=== PATIENT | male | born 1970 | race Caucasian/White ===

== ENCOUNTER 2016-07-02 10:29 | Inpatient (IN) | payer OTHER ==
[~2016-07-02] VITALS: Ht 172.7 cm; Wt 81.6 kg
--- NOTE | 2016-07-02 10:49 | NUR ---
TRIAGE: 45 Y/O MALE PRESENTS C/O "I'M ABOUT TO GO THROUGH MASSIVE DETOX FROM ALCOHOL." "I'M ALREADY SHAKING." LAST DRINK 2 HOURS AGO: 1/2 PINT VODKA. DENIES ILLICIT DRUG USE. HISTORY OF SEIZURES S/P ETOH DETOX.
--- NOTE | 2016-07-02 10:49 | NUR ---
DENIES SUICIDALITY OR HOMICIDALITY. ARRIVES WITH A FRIEND TO TRIAGE.
--- NOTE | 2016-07-02 11:22 | NUR ---
AMBULATORY TO ROOM 19 WITH FRIEND. SECURITY AT BEDSIDE FOR WANDING.
--- NOTE | 2016-07-02 11:38 | NUR ---
WANDED BY SECURITY AND CHANGED INTO BLUE SCRUBS. 1 BELONGINGS BAG IN CLOSET, SIG OTHER TOOK ALL OTHER BELONGINGS. URINE TRIO SENT, BLOOD (SST/LAV/BLUE/WIN) SENT. PT SMELLS OF ETOH AND IS AWARE THAT HE CANNOT BE EVALUATED FOR DETOX UNTIL SOBER. PT NOW STATING HE INTIALLY DID NOT WANT TO SAY THIS IN FRONT OF HIS PARTNER BUT IS SI WITH PLAN NOW. CHARGE NURSE INFORMED. PARTNER REMAINS AT BEDSIDE FOR SUPPORT.
[2016-07-02 11:43] LABS: ABSOLUTE BASOPHIL COUNT 0 /CUMM (0.0-0.2); ABSOLUTE EOSINOPHIL COUNT 0.3 /CUMM (0.0-0.7); ABSOLUTE GRANULOCYTE CT 4.1 /CUMM (1.4-6.5); ABSOLUTE LYMPH COUNT 1.2 /CUMM (1.2-3.4); ABSOLUTE MONOCYTE COUNT 0.3 /CUMM (0.10-0.60); BASOPHIL % 0.3 % (0.0-2.0); EOSINOPHIL % 5.3 % (0-5); GRANULOCYTE % 69.5 % (42.2-75.2); HEMATOCRIT 43.3 % (42-52); MEAN CORPUSCULAR HGB 28.8 PG (27.0-31.0); MEAN CORPUSCULAR HGB CONC 33.4 G/DL (33.0-37.0); MEAN CORPUSCULAR VOLUME 86.4 FL (80.0-94.0); MEAN PLATELET VOLUME 7.1 FL (7.4-10.4); PLATELET COUNT 242 /CUMM (130-400); RBC DISTRIBUTION WIDTH 14.5 % (11.5-14.5); RED BLOOD CELL CT 5.01 /CUMM (4.70-6.10); WHITE BLOOD CELL COUNT 5.9 /CUMM (4.8-10.8)
[2016-07-02] MEDS ORDERED: PANTOPRAZOLE SO40 M1 PO (11:50)
--- NOTE | 2016-07-02 11:51 | NUR ---
PT NOW ALSO REPORTS HE WAS DX WITH A BLEEDING STOMACH ULCER AFTER VOMITING BLOOD AROUND THE TIME OF HIS HERNIA SURGERY. WAS PRESCRIBED PROTONIX BUT HAS NOT TAKEN. NO VOMITING HERE. C/O PAIN AT INCISION SITE, NO INCREASE FROM PRIOR, PARTNER REPORTS "HIS PAIN IS PROFOUND" BUT THEN STATES "THEY GAVE HIM OPIATES FOR THE SURGERY AND THAT JUST MADE HIM DRINK."
[2016-07-02 11:56] VITALS: BP 132/73
--- NOTE | 2016-07-02 12:18 | NUR ---
PT ASLEEP/SNORING ON STRETCHER
--- NOTE | 2016-07-02 12:42 | NUR ---
JOHAN KEANE AT BEDSIDE FOR EVAL
[2016-07-02 12:57] VITALS: BP 142/58
--- NOTE | 2016-07-02 13:16 | NUR ---
CRITICAL TEST RESULTS [id number] NIKI LUGO 45 M TESTS AND RESULTS: LACTIC 2 Results received and read back by: RADHA LEWIS Results received date and time: 07/02/16 1316 The following provider was notified of the results, and read the results back: JOHAN KEANE Notified date and time: 07/02/16 at 1315
[2016-07-02 13:17] LABS: PT 10.6 SEC (9.4-12.5); PTT 30 SEC (25-37)
--- NOTE | 2016-07-02 13:47 | ED PSYCHIATRIC COMPLAINT ---
History of Present Illness General Chief Complaint: ETOH/Drug Related Complaint Stated Complaint: WITHDRAWL Source: patient Exam Limitations: no limitations Vital Signs & Intake/Output Vital Signs & Intake/Output Vital Signs Date Time Temp Pulse Resp B/P B/P Pulse O2 O2 Flow FiO2 Mean Ox Delivery Rate 07/04 0824 98.4 71 20 150/100 99 Room Air / 0800 98.4 71 20 150/100 05/08 0630 98.6 60 20 164/100 97 Room Air / 0204 98.5 58 20 150/94 95 Room Air 05/ 2259 98.7 88 20 130/80 96 05/07 2000 98.7 64 16 142/76 05/07 1901 98.2 63 20 140/68 95 Room Air / 1600 99.1 68 17 144/70 05/07 1546 98.2 67 18 96 05/ 1457 68 16 144/82 98 Room Air / 1200 97.9 88 16 140/78 ED Intake and Output 07/04 0000 07/03 1200 Intake Total 2375 1100 Output Total 200 Balance 2175 1100 Intake, IV 375 1000 Intake, Oral 2000 100 Number 1 Bowel Movements Output, 200 Emesis Reconcile Medications Pantoprazole Sodium 40 MG TABLET.DR 1 TAB PO DAILY ULCER (Reported) Triage Note: TRIAGE: 45 Y/O MALE PRESENTS C/O "I'M ABOUT TO GO THROUGH MASSIVE DETOX FROM ALCOHOL." "I'M ALREADY SHAKING." LAST DRINK 2 HOURS AGO: 1/ PINT VODKA. DENIES ILLICIT DRUG USE. HISTORY OF SEIZURES S/P ETOH DETOX. Triage Nurses Notes Reviewed? yes HPI: This patient is a 45-year-old male with past medical history including alcohol dependence who is 9 days status post umbilical repair mesh revision who presented to the emergency department today for evaluation of alcohol intoxication. The patient's significant other is at the bedside. He reported that this patient was 2 years sober. His last alcohol withdrawal seizure was in August 2013. The patient recently had a hernia repair. The opiates that were given to him triggered his relapse. The patient's last drink was this morning at approximately 4:00 when he had vodka. The patient does not remember exactly how much he had to drink. He denies any illicit drug use. The patient is also endorsing some soreness around the incision site. The patient's significant other reported that the patient has been having bloody diarrhea as well as vomiting blood over the last several days. He just picked up a new medication for this, but has not started it yet. They were told that he likely has a gastric ulcer. The patient denied any fevers, chills, chest pain, difficulty breathing, back pain, nausea, or vomiting. (MANUEL KEANE PA-C) Allergies Coded Allergies: lithium (Intermediate, RASH 07/02/16) (JUMA DORSEY,HEATHER) Past History Travel History Traveled to [place] past 21 day No Medical History Any Pertinent Medical History? see below for history Neurological: seizure Gastrointestinal: umbilical hernia Psychiatric: alcohol dependence, depression Surgical History Surgical History: non-contributory Psychosocial History Who do you live with Patient/Self What is your primary language Uzbek Tobacco Use: Current Daily Use Daily Tobacco Use Amount/Type: => 5 Cigarettes daily ETOH Use: alcoholic Illicit Drug Use: denies illicit drug use Family History Hx Contributory? No (MANUEL KEANE PA-C) Review of Systems Review of Systems Constitutional: Reports: no symptoms. EENTM: Reports: no symptoms. Respiratory: Reports: no symptoms. Cardiovascular: Reports: no symptoms. GI: Reports: see HPI. Genitourinary: Reports: no symptoms. Musculoskeletal: Reports: no symptoms. Skin: Reports: no symptoms. Neurological/Psychological: Reports: see HPI. All Other Systems: Reviewed and Negative (MANUEL KEANE PA-C) Physical Exam Physical Exam General Appearance: well developed/nourished, alert, awake, intoxicated Neurological/Psychiatric: no motor/sensory deficits, awake, alert, calm, motorized squad sergeant II- XII nml as tested, oriented x 3 Comments: Well-developed well-nourished person in who is currently intoxicated HEENT: Normal EENT exam, head normocephalic, moist mucous membranes PERRLA bilaterally. EOMI bilaterally Neck: Supple, no lymphadenopathy Back: Normal inspection Cardiovascular: Regular rate and rhythm with no murmurs, rubs, or gallops Respiratory: Chest nontender. No respiratory distress. Breath sounds clear to auscultation bilaterally with no wheezes, rales, or rhonchi Abdomen: Soft and nondistended. Tympanic to percussion. Well healing approximately 3 cm in length previous incision site just above the umbilicus. Abdominal binder in place. Mild tenderness to palpation over the healing wound site. No rebound or guarding. Extremity: Nnormal and equal pulses. Neuro: Alert oriented x3, cranial nerves II through XII grossly intact. Skin: No appreciable rash on exposed skin, skin is warm and dry. Psych: Mood and affect is normal SAD PERSONS Done? yes (LAKHWINDER SAN,MANUEL) Progress Differential Diagnosis: dementia, drug intoxication, drug overdose, drug withdrawal, electrolyte abnormality, encephalitis, hypoglycemia, hypothyroidism, IC hem/mass/tumor, alcohol intoxication, alcohol withdrawal, gastric ulcer, gastroenteritis, perforated viscus Plan of Care: Orders Procedure Date/time Status Change service to 07/04 757 Active CBC WITHOUT DIFFERENTIAL 07/04 599 Complete PHARMACY COMMUNICATION FORM 07/04 UNK Active CP South Sitter/Safety Monitor 07/03 UNK Complete Continuous Observation Monitor 07/03 UNK Active Current Medications Sig/Farzaneh Start time Last Medication Dose Stop Time Status Admin Chlordiazepoxide HCl 50 MG Q8 07/04 06 AC 07/04 (Librium) 0648 Folic Acid 1 MG DAILY 07/03 999 AC 07/04 (Folic Acid) 0851 Multivitamins 1 TAB DAILY 07/03 999 AC 07/04 (Theragran Vitamins) 0851 Nicotine 14 MG DAILY 07/03 1000 AC 07/04 (Nicotine Cq) 0851 Pantoprazole Sodium 40 MG BID 07/03 999 AC 07/04 (Protonix) 0851 Thiamine HCl 100 MG DAILY 07/03 1000 AC 07/04 (Vitamin B1) 0851 Acetaminophen 1,000 MG Q6P PRN 07/02 2099 AC 07/03 (Ofirmev) 1625 N/A 1 UNIT (No Carrier) Acetaminophen 325 MG Q6P PRN 07/02 2099 AC (Tylenol) Ondansetron HCl 4 MG Q6P PRN 07/02 2099 AC 07/03 (Zofran) 1231 Lorazepam 0 Q1P PRN 07/02 2029 AC 07/03 (Ativan) 1231 Morphine Sulfate 2 MG Q8P PRN 07/02 2029 AC 07/03 (Morphine) 0724 Laboratory Tests 07/04/16 0735: CBC w Diff NO MAN DIFF REQ, RBC 4.72, MCV 86.7, MCH 28.9, RDW 14.4, MPV 7.9, Gran % 70.9, Lymphocytes % 13.9 L, Monocytes % 7.6, Eosinophils % 7.2 H, Basophils % 0.4, Absolute Granulocytes 4.4, Absolute Lymphocytes 0.9 L, Absolute Monocytes 0.5, Absolute Eosinophils 0.5, Absolute Basophils 0, PUBS MCHC 33.3 Diagnostic Imaging: Viewed by Me: CT Scan. Discussed w/RAD: CT Scan. Radiology Impression: PATIENT: NIKI LUGO PRESENT AGE: 45 PATIENT ACCOUNT NO: [id number] : 68 LOCATION: [facility] ORDERING PHYSICIAN: MANUEL KEANE PA-C SERVICE DATE: 07/02/16 EXAM TYPE: CAT - CT ABD & PELVIS W IV CONTRAST EXAMINATION: CT ABDOMEN AND PELVIS WITH CONTRAST CLINICAL INFORMATION: Bloody vomitus and bloody diarrhea. Evaluate for perforated viscus. COMPARISON: None. TECHNIQUE: Multidetector CT volumetric acquisition of the abdomen and pelvis was performed after the administration of 94 and MLO of intravenous Optiray 320 The data set was reformatted in the sagittal and coronal planes and reviewed on an independent workstation. DLP: 357.58 mGy-cm. FINDINGS: LOWER CHEST: Mild subsegmental atelectasis seen in the lung bases bilaterally. Trace physiologic pericardial fluid is seen. LIVER, GALLBLADDER, BILIARY TREE: Liver normal size and diffusely lower in attenuation compared to the spleen, consistent with hepatic steatosis. No focal cystic or solid mass or intra-or extrahepatic ductal dilatation. Hepatic and portal veins patent. Gallbladder partially distended and within normal limits. PANCREAS: Normal. No ductal dilatation, mass, or surrounding stranding. SPLEEN: Normal size and appearance. Splenic vein patent. ADRENAL GLANDS AND KIDNEYS: Adrenal glands normal. Kidneys bilaterally symmetric in size and function. There is a nonobstructing 0.5 cm mid right renal densely calcified calculus with mean attenuation values of 675 Hounsfield units, consistent with a calcified stone, such as a calcium phosphate stone. No other renal calculi are seen. No focal mass, hydronephrosis, or perinephric stranding. URETERS AND BLADDER: Ureters decompressed and within normal limits. Bladder partially distended and within normal limits. PELVIC ORGANS: Unremarkable. GASTROINTESTINAL TRACT: Partial fluid and air distention of the stomach and duodenal bulb is seen without focal mass seen. There is very subtle perigastric hyperemia seen around the gastric fundus and body with tiny subcentimeter sized lymph nodes seen in the lesser sac. There is questionable associated mild thickening of the gastric wall. These findings are nonspecific. No significant perigastric or periesophageal varices are noted. A few scattered colonic diverticula are seen with no evidence of acute diverticulitis. Small and large bowel loops decompressed and otherwise unremarkable. No evidence of bowel obstruction or perforation. No abnormal bowel wall thickening seen. Appendix in right lower quadrant normal. ABDOMINAL WALL: There is some amorphous density present in the subcutaneous fat of the mid anterior abdominal wall in the periumbilical region, extending from the skin surface down to the underlying abdominal wall musculature. Mild associated thickening of the skin is seen and findings may represent focal area of acute cellulitis and panniculitis. Other differential could include posttraumatic or postsurgical changes. LYMPHOVASCULAR STRUCTURES: Abdominal aorta normal in caliber. No periaortic collections. Mild atherosclerotic calcifications of the distal abdominal aorta and bifurcation are noted. Incidental note is made of a circumaortic left renal vein and 2 left renal arteries. No abdominal or pelvic adenopathy or free fluid collection. BONES: There is mild vertebral spurring seen in the lower thoracic spine and in the lower lumbar spine. No suspicious bone findings are seen. IMPRESSION: 1. Very subtle findings are seen with suggestion of gastric wall thickening involving the fundus and body with minimal surrounding hyperemia and adenitis. Findings are best appreciated on the thin section images and in the clinical setting provided, raise the question of subtle gastritis. Endoscopic correlation is requested. 2. No evidence of bowel obstruction or perforation is seen. 3. Scattered colonic diverticulosis with no evidence of acute diverticulitis. 4. Abnormal infiltration of the skin and the underlying fat in the periumbilical region. This may be related to acute cellulitis/panniculitis versus posttraumatic or postsurgical change. Close clinical correlation is requested. 5. Nonobstructing mid right renal calcification. DICTATED BY: CAMPOS GRAMAJO MD DATE/TIME DICTATED:07/02/161706 FASHION PHOTOGRAPHER:KENDRA DATE/TIME TRANSCRIBED:07/02/161706 CONFIDENTIAL, DO NOT COPY WITHOUT APPROPRIATE AUTHORIZATION. <Electronically signed in Other Vendor System> SIGNED BY: CAMPOS GRAMAJO MD 07/02/16 1738 Comments: 07/02/2016 3:22:39 PM: The patient's significant other left the room. I discussed with this patient the possibility of any suicidal ideation. He reported that he has been feeling suicidal. He reported that he would do something, "quick and easy. A fast way out like in the car." The patient denied any homicidal ideation. (MANUEL KEANE PA-C) Departure Departure Disposition: STILL A PATIENT Condition: Stable Clinical Impression Primary Impression: GI bleed Qualifiers: GI bleed type/associated pathology: unspecified gastrointestinal hemorrhage type Qualified Code: K92.2 - Gastrointestinal hemorrhage, unspecified Secondary Impressions: Alcohol withdrawal seizure Qualifiers: Complication of substance-induced condition: with unspecified complication Qualified Codes: F10.239 - Alcohol dependence with withdrawal, unspecified; R56.9 - Unspecified convulsions Referrals: NEIL MURDOCK MD (PCP/Family) Departure Forms: Customer Survey General Discharge Information Admission Note Spoke With: BRITNEY TREVIÑO MD Documentation of Exam: Documentation of any treatments & extenuating circumstances including Concerns Regarding Discharge (functional status, medication knowledge or non-compliance, living conditions, etc.) that warrant an admission rather than observation: This patient is a 45-year-old male who presented to the emergency department today for, evaluation of alcohol detox and GI bleed. This patient likely to be admitted for CIWA protocol, close monitoring, GI consultation, possible endoscopy, PPI, and crisis consultation. This patient is a poor candidate for outpatient treatment. Premature discharge could prove medically harmful. (MANUEL KEANE PA-C) ([facility]) 1026 N/A 1 UNIT (No Carrier) Acetaminophen 325 MG Q6P PRN / 2100 AC (Tylenol) Ondansetron HCl 4 MG Q6P PRN 07/02 2100 AC 07/03 (Zofran) 1231 Lorazepam 0 Q1P PRN 07/02 2030 AC 07/03 (Ativan) 1231 Morphine Sulfate 2 MG Q8P PRN 07/02 2030 AC 07/03 (Morphine) 0724 Laboratory Tests 07/03/16 0622: Phosphorus 3.4, Magnesium 1.7, Total Bilirubin 0.7, Direct Bilirubin 0.2, AST 49 , ALT 62, Alkaline Phosphatase 64, Total Protein 5.2 L, Albumin 3.2 L, CBC w Diff NO MAN DIFF REQ, RBC 4.51 L, MCV 86.4, MCH 29.0, RDW 14.1, MPV 7.8, Gran % 74.1, Lymphocytes % 13.8 L, Monocytes % 6.8, Eosinophils % 5.0, Basophils % 0.3 , Absolute Granulocytes 5.1, Absolute Lymphocytes 0.9 L, Absolute Monocytes 0.5 , Absolute Eosinophils 0.3, Absolute Basophils 0, PUBS MCHC 33.6 Departure Departure Disposition: STILL A PATIENT Condition: Stable Clinical Impression Primary Impression: GI bleed Qualifiers: GI bleed type/associated pathology: unspecified gastrointestinal hemorrhage type Qualified Code: K92.2 - Gastrointestinal hemorrhage, unspecified Secondary Impressions: Alcohol withdrawal seizure Qualifiers: Complication of substance-induced condition: with unspecified complication Qualified Codes: F10.239 - Alcohol dependence with withdrawal, unspecified; R56.9 - Unspecified convulsions Referrals: NEIL MURDOCK MD (PCP/Family) Departure Forms: Customer Survey General Discharge Information Admission Note Spoke With: BRITNEY TREVIÑO MD Documentation of Exam: Documentation of any treatments & extenuating circumstances including Concerns Regarding Discharge (functional status, medication knowledge or non-compliance, living conditions, etc.) that warrant an admission rather than observation: This patient is a 45-year-old male who presented to the emergency department today for, evaluation of alcohol detox and GI bleed. This patient likely to be admitted for CIWA protocol, close monitoring, GI consultation, possible endoscopy, PPI, and crisis consultation. This patient is a poor candidate for outpatient treatment. Premature discharge could prove medically harmful. (LAKHWINDER SAN,MANUEL)
--- NOTE | 2016-07-02 14:17 | NUR ---
IV EST FOR CT SCAN. PT CONTS SLEEPING ON/OFF, REPORTS "FEELING LIKE I'M GETTING WORSE" BUT NO VISIBLE SYMPTOMS OF DETOX.
[2016-07-02 15:11] VITALS: BP 119/70
--- NOTE | 2016-07-02 15:16 | NUR ---
PT AMBULATORY TO BATHROOM WITH SITTER WITHOUT DIFFICULTY. PT REPORTING STILL HAVING NAUSEA, BUT ALSO ASKING FOR FOOD. STILL C/O FEELING DETOX SYMPTOMS THOUGH CONTS TO SLEEP FREQUENTLY WITH ODOR OF ETOH. NO VISIBLE TREMORS/SWEATING ETC. SITTER AT BEDSIDE. AWAITING CT SCAN.
--- NOTE | 2016-07-02 16:34 | NUR ---
CARE ASSUMED BY THIS RN NOW.
--- NOTE | 2016-07-02 16:40 | NUR ---
PT TO CAT SCAN
--- NOTE | 2016-07-02 17:02 | NUR ---
PT RETURNED FROM CAT SCAN
--- NOTE | 2016-07-02 17:38 | CT SCAN REPORT ---
EXAMINATION: CT ABDOMEN AND PELVIS WITH CONTRAST CLINICAL INFORMATION: Bloody vomitus and bloody diarrhea. Evaluate for perforated viscus. COMPARISON: None. TECHNIQUE: Multidetector CT volumetric acquisition of the abdomen and pelvis was performed after the administration of 94 and MLO of intravenous Optiray 320 The data set was reformatted in the sagittal and coronal planes and reviewed on an independent workstation. DLP: 357.58 mGy-cm. FINDINGS: LOWER CHEST: Mild subsegmental atelectasis seen in the lung bases bilaterally. Trace physiologic pericardial fluid is seen. LIVER, GALLBLADDER, BILIARY TREE: Liver normal size and diffusely lower in attenuation compared to the spleen, consistent with hepatic steatosis. No focal cystic or solid mass or intra-or extrahepatic ductal dilatation. Hepatic and portal veins patent. Gallbladder partially distended and within normal limits. PANCREAS: Normal. No ductal dilatation, mass, or surrounding stranding. SPLEEN: Normal size and appearance. Splenic vein patent. ADRENAL GLANDS AND KIDNEYS: Adrenal glands normal. Kidneys bilaterally symmetric in size and function. There is a nonobstructing 0.5 cm mid right renal densely calcified calculus with mean attenuation values of 675 Hounsfield units, consistent with a calcified stone, such as a calcium phosphate stone. No other renal calculi are seen. No focal mass, hydronephrosis, or perinephric stranding. URETERS AND BLADDER: Ureters decompressed and within normal limits. Bladder partially distended and within normal limits. PELVIC ORGANS: Unremarkable. GASTROINTESTINAL TRACT: Partial fluid and air distention of the stomach and duodenal bulb is seen without focal mass seen. There is very subtle perigastric hyperemia seen around the gastric fundus and body with tiny subcentimeter sized lymph nodes seen in the lesser sac. There is questionable associated mild thickening of the gastric wall. These findings are nonspecific. No significant perigastric or periesophageal varices are noted. A few scattered colonic diverticula are seen with no evidence of acute diverticulitis. Small and large bowel loops decompressed and otherwise unremarkable. No evidence of bowel obstruction or perforation. No abnormal bowel wall thickening seen. Appendix in right lower quadrant normal. ABDOMINAL WALL: There is some amorphous density present in the subcutaneous fat of the mid anterior abdominal wall in the periumbilical region, extending from the skin surface down to the underlying abdominal wall musculature. Mild associated thickening of the skin is seen and findings may represent focal area of acute cellulitis and panniculitis. Other differential could include posttraumatic or postsurgical changes. LYMPHOVASCULAR STRUCTURES: Abdominal aorta normal in caliber. No periaortic collections. Mild atherosclerotic calcifications of the distal abdominal aorta and bifurcation are noted. Incidental note is made of a circumaortic left renal vein and 2 left renal arteries. No abdominal or pelvic adenopathy or free fluid collection. BONES: There is mild vertebral spurring seen in the lower thoracic spine and in the lower lumbar spine. No suspicious bone findings are seen. IMPRESSION: 1. Very subtle findings are seen with suggestion of gastric wall thickening involving the fundus and body with minimal surrounding hyperemia and adenitis. Findings are best appreciated on the thin section images and in the clinical setting provided, raise the question of subtle gastritis. Endoscopic correlation is requested. 2. No evidence of bowel obstruction or perforation is seen. 3. Scattered colonic diverticulosis with no evidence of acute diverticulitis. 4. Abnormal infiltration of the skin and the underlying fat in the periumbilical region. This may be related to acute cellulitis/panniculitis versus posttraumatic or postsurgical change. Close clinical correlation is requested. 5. Nonobstructing mid right renal calcification.
--- NOTE | 2016-07-02 18:14 | NUR ---
CALLED DIETARY TO ORDER DINNER TRAY
[2016-07-02 19:10] VITALS: BP 119/63
--- NOTE | 2016-07-02 20:17 | History & Physical ---
SUSHILA ANTOINE 07/02/16 2015: General Information and HPI MD Statement: I have seen and personally examined NIKI LUGO and documented this H&P. The patient is a 45 year old M who presented with a patient stated chief complaint of [ALCOHOL DETOX]. Source of Information: patient Exam Limitations: no limitations History of Present Illness: 45-year-old male with a past medical history of alcohol dependence, major depressive disorder, SI, PTSDalcohol withdrawal seizure in August 2013 status post 9 days of umbilical repair mesh revision presented to the ED for evaluation of alcohol intoxication. According to the patient he underwent umbilical hernia revision surgery on 06/21 at [facility] by Dr. Beebe. He was discharged from the hospital and continued to have abdominal pain at the site of surgery. He states that he ran out of pain medications that he was discharged on on day 3 and started to take ibuprofen 800 mg 3 times a day after which she started to experience bloody vomitus as well as blood in his stools. He states that he return back to the hospital was seen in the ER and advised to stop taking ibuprofen after which his symptoms bloody vomitus and bowel movements resolved. He however continued to experience pain at the site of surgery and so about 3-4 days ago he started drinking to help self medicate himself. He states that he drinks 2-1/2 pins and 6 packs, stating that he would have to get up in the morning and have a half to have alcohol first thing in order to avoid its withdrawal effects. He would occasionally wake up during the middle of the needed 2 or 3 AM with shakes and chills. He denies any chest pain, does however endorse dizziness, palpitations, headache however denies blurry vision, seizures , loss of consciousness. He states that his last drink was half a pint of Vodka , this morning at 6 AM. Of note his friend saw him this morning and brought him to the ER. Of note patient has a history of alcohol abuse and was sober for almost 2 years up until 3-4 days ago. He was also a former smoker and quit smoking 9 months ago, had smoked 1 pack per day for 20 years before restarting it 3-4 days ago. Patient currently denies any black tarry stools, does endorse nausea but denies any hematemesis. He denies any fever, shortness of breath, cough, slurred speech, seizure like activity. He does however states that he wished that he was because he does not want to go through it and also Detrol all over again. His last alcohol detox 2 years ago at which time he did underwent seizures. Allergies/Medications Allergies: Coded Allergies: lithium (Intermediate, RASH 07/02/16) Home Med list Pantoprazole Sodium 40 MG TABLET. 1 TAB PO DAILY ULCER (Reported) Past History Travel History Traveled to [place] past 21 day No ( ) Medical History Neurological: seizure Gastrointestinal: umbilical hernia Psychiatric: alcohol dependence, depression Isolation History: Standard Surgical History Surgical History: hernia repair-umbilical Past Family/Social History Family History Relations & Conditions if any Relation not specified for: *No pertinent family history Psychosocial History Where do you live? Home Who Do You Live With? self Smoking Status: Current Everyday Smoker ETOH Use: alcoholic Illicit Drug Use: SMOKE MARIJUANIA Functional Ability ADLs Independent: dressing, eating, toileting, bathing. Ambulation: independent IADLs Independent: shopping, housework, finances, food prep, telephone, transportation , medication admin. Employment History Employment Employed Profession/Employer [employer] Review of Systems Review of Systems Constitutional: Reports: chills, diaphoresis. Denies: fever, weakness. EENTM: Denies: visual changes. Cardiovascular: Reports: palpitations. Denies: chest pain, orthopena, peripheral edema, syncope. Respiratory: Denies: cough, orthopnea, short of breath, sputum production, wheezing. GI: Reports: abdominal pain, nausea, bloody stool, vomiting. Denies: constipation, diarrhea. Genitourinary: Denies: dysuria, frequency, hematuria. Musculoskeletal: Denies: back pain, joint pain, joint swelling. Neurological/Psychological: Reports: headache, tremors. Denies: numbness, paresthesia, tingling, weakness. Exam & Diagnostic Data Last 24 Hrs of Vital Signs/I&O Vital Signs Date Time Temp Pulse Resp B/P B/P Pulse O2 O2 Flow FiO2 Mean Ox Delivery Rate 07/02 1910 98.6 84 15 119/63 07/02 1909 98.6 85 15 119/63 93 Room Air Room Air 07/02 1743 97.7 79 20 114/66 92 Room Air 07/02 1511 97.4 89 18 119/70 05/06 1449 97.4 89 18 119/70 91 Room Air 05/06 1257 97.5 71 20 142/58 05/06 1256 97.5 71 20 142/58 93 Room Air / 1156 99.0 91 18 132/73 05/06 1045 99.0 91 18 132/73 95 Room Air Room Air Intake & Output 07/02 1600 05/06 0800 05/ 0000 Intake Total Output Total Balance Patient 180 lb Weight Weight Reported by Patient Measurement Method Physical Exam General Appearance Alert, Oriented X3, Cooperative Skin Temp/Moisture Exam: Warm/Dry HEENT Atraumatic, PERRLA, EOMI, Mucous Membr. moist/pink Neck Supple, No JVD, No thryomegaly, +2 Carotid Pulse wo Bruit, No LAD Cardiovascular Regular Rate, Normal S1, Normal S2, No Murmurs Lungs Clear to Auscultation, Normal Air Movement Abdomen Normal Bowel Sounds, Soft, has a midline well healed surgical scar with no drainage. Does have tenderness to palpation in the left periumbilical area. Cano's negative Neurological Normal Speech, Strength at 5/5 X4 Ext, Normal Tone, Sensation Intact, Cranial Nerves 3-12 NL, Reflexes 2+, tremors Extremities No Clubbing, No Cyanosis, No Edema, Normal Pulses, No Tenderness/ Swelling Vascular Normal Pulses, Pulses Symmetrical Last 24 Hrs of Labs/Fabrizio: Laboratory Tests 07/02/16 1133: Serum Alcohol 340.0 07/02/16 1133: Anion Gap 16, Estimated GFR > 60, BUN/Creatinine Ratio 15.0, Glucose 85, Lactic Acid 2.0, Calcium 8.6, Total Bilirubin 0.4, AST 66 H, ALT 74 H, Alkaline Phosphatase 79, Total Protein 6.4, Albumin 4.0, Globulin 2.4, Albumin/Globulin Ratio 1.7, PT 10.6, INR 1.01, APTT 30, CBC w Diff NO MAN DIFF REQ, RBC 5.01, MCV 86.4, MCH 28.8, RDW 14.5, MPV 7.1 L, Gran % 69.5, Lymphocytes % 20.1 L, Monocytes % 4.8, Eosinophils % 5.3 H, Basophils % 0.3, Absolute Granulocytes 4.1, Absolute Lymphocytes 1.2, Absolute Monocytes 0.3, Absolute Eosinophils 0.3, Absolute Basophils 0, PUBS MCHC 33.4, Urine Opiates Screen < 100.00, Methadone Screen 56, Barbiturate Screen < 60, Ur Phencyclidine Scrn < 6.00, Amphetamines Screen 112, U Benzodiazepines Scrn < 85, Urine Cocaine Screen < 50, Urine Cannabis Screen 65.10 H Diagnostic Data Other Results SERVICE DATE: 07/02/16 EXAM TYPE: CAT - CT ABD & PELVIS W IV CONTRAST FINDINGS: LOWER CHEST: Mild subsegmental atelectasis seen in the lung bases bilaterally. Trace physiologic pericardial fluid is seen. LIVER, GALLBLADDER, BILIARY TREE: Liver normal size and diffusely lower in attenuation compared to the spleen, consistent with hepatic steatosis. No focal cystic or solid mass or intra-or extrahepatic ductal dilatation. Hepatic and portal veins patent. Gallbladder partially distended and within normal limits. PANCREAS: Normal. No ductal dilatation, mass, or surrounding stranding. SPLEEN: Normal size and appearance. Splenic vein patent. ADRENAL GLANDS AND KIDNEYS: Adrenal glands normal. Kidneys bilaterally symmetric in size and function. There is a nonobstructing 0.5 cm mid right renal densely calcified calculus with mean attenuation values of 675 Hounsfield units, consistent with a calcified stone, such as a calcium phosphate stone. No other renal calculi are seen. No focal mass, hydronephrosis, or perinephric stranding. URETERS AND BLADDER: Ureters decompressed and within normal limits. Bladder partially distended and within normal limits. PELVIC ORGANS: Unremarkable. GASTROINTESTINAL TRACT: Partial fluid and air distention of the stomach and duodenal bulb is seen without focal mass seen. There is very subtle perigastric hyperemia seen around the gastric fundus and body with tiny subcentimeter sized lymph nodes seen in the lesser sac. There is questionable associated mild thickening of the gastric wall. These findings are nonspecific. No significant perigastric or periesophageal varices are noted. A few scattered colonic diverticula are seen with no evidence of acute diverticulitis. Small and large bowel loops decompressed and otherwise unremarkable. No evidence of bowel obstruction or perforation. No abnormal bowel wall thickening seen. Appendix in right lower quadrant normal. ABDOMINAL WALL: There is some amorphous density present in the subcutaneous fat of the mid anterior abdominal wall in the periumbilical region, extending from the skin surface down to the underlying abdominal wall musculature. Mild associated thickening of the skin is seen and findings may represent focal area of acute cellulitis and panniculitis. Other differential could include posttraumatic or postsurgical changes. LYMPHOVASCULAR STRUCTURES: Abdominal aorta normal in caliber. No periaortic collections. Mild atherosclerotic calcifications of the distal abdominal aorta and bifurcation are noted. Incidental note is made of a circumaortic left renal vein and 2 left renal arteries. No abdominal or pelvic adenopathy or free fluid collection. BONES: There is mild vertebral spurring seen in the lower thoracic spine and in the lower lumbar spine. No suspicious bone findings are seen. IMPRESSION: 1. Very subtle findings are seen with suggestion of gastric wall thickening involving the fundus and body with minimal surrounding hyperemia and adenitis. Findings are best appreciated on the thin section images and in the clinical setting provided, raise the question of subtle gastritis. Endoscopic correlation is requested. 2. No evidence of bowel obstruction or perforation is seen. 3. Scattered colonic diverticulosis with no evidence of acute diverticulitis. 4. Abnormal infiltration of the skin and the underlying fat in the periumbilical region. This may be related to acute cellulitis/panniculitis versus posttraumatic or postsurgical change. Close clinical correlation is requested. 5. Nonobstructing mid right renal calcification. Assessment/Plan Assessment: 45-year-old male with a past medical history of alcohol dependence, alcohol withdrawal seizure in August 2013 status post 9 days of umbilical repair mesh revision presented to the ED for evaluation of alcohol intoxication. Vitals at the time of admission blood pressure 132/73, respiratory rate 18, pulse 91, afebrile saturating 95% on room air. Labs pertinent for a normal white blood cell count of 5900, H&H of 14.4/43.3, MCV of 86.4, platelet count of 242,000. Serum chemistries revealed a hiatal hernia female with a sodium of 140, potassium of 4.3, bicarbonate 26, anion gap of 16, BUN 12 and creatinine of 0.8. Lactic acid was 2.0, LFTs pertinent for a normal total bili of 0.4, AST/AST of 66/74, alkaline phosphatase of 79. U tox positive for cannabis and alcohol level of 340. INR pertinent for 1.01. CT abdomen and pelvis with IV contrast was done as patient complained of bloody vomitus or diarrhea which showed gastric wall thickening involving the fundus and body with minimal surrounding hyperemia and adenitis. There is a question of subtle gastritis. There is no evidence of bowel obstruction or perforation. Scattered colonic diverticulosis with no evidence of acute diverticulitis. There is abnormal infiltration of the skin and underlying fat in the periumbilical region. Questionable acute cellulitis or folliculitis versus posttraumatic or postsurgical drainage. nonobstructing mid right renal calcification. In the ER after the patient's significant other left he apparently expressed the possibility of suicidal ideation saying that he would do something quick and easy of gastric outlet in the car. He'll denied any homicidal ideation. Of note his CIWA has been ranging between 3-9 more so on tremors, anxiety. Assessment and plan Admit patient to general medicine for alcohol detox #Ethanol Detox Started on Librium 25mg TID Maintain on Ativan per CIWA IV banana bag for now, with trasnition to oral MV, thiamin and folic acid in AM. Seizure and fall precautions F/U EKG to monitor QTc Zofran 4mg Q6 PRN IV for nausea. Psych consult in a.m. Social work consult in a.m. #Major depressive disorder Endorsing suicidal ideation as per ED notes. We'll place a sitter for now and will not have him leave AMA Psych consult to evaluate. #Hx of hematemesis and bloody bowel movements 2/2 NSAID induced gastritis Currently stable, with no evidence of anemia on bloo dwork. Continue to monitor H&H Omeprazole 40mg daily for now. #Periumbilical abdominal pain in the setting of recent revisional umbilical hernia repair CT showed amorphous density present in the subcutaneous fat of the mid anterior abdominal wall in the periumbilical region, extending from the skin surface down to the underlying abdominal wall musculature. Mild associated thickening of the skin is seen and findings may represent focal area of acute cellulitis and panniculitis. - Continue to moniter for fever, and worsening of abdominal pain. - Consider surgical consult in AM #Nicotine Dependence - Maintain on Nicotine patch 14mg daily - DVT prophylaxis - Heparin 5000IU TID SC - Diet - Regular - Code Status - Full Code As Ranked By This Provider Problem List: 1. Alcohol abuse 2. GI bleed Qualifiers GI bleed type/associated pathology: unspecified gastrointestinal hemorrhage type Qualified Code: K92.2 - Gastrointestinal hemorrhage, unspecified 3. Alcohol withdrawal seizure Qualifiers Complication of substance-induced condition: with unspecified complication Qualified Codes: F10.239 - Alcohol dependence with withdrawal, unspecified; R56.9 - Unspecified convulsions Core Measures/Miscellaneous Acute Coronary Syndrome ACS Diagnosis: No Cerebrovascular Accident CVA/TIA Diagnosis: No Congestive Heart Failure CHF Diagnosis: No Venous Thromboembolism VTE Risk Factors: Age > 40 No [facility] VTE prophylaxis d/t: No contraindications No VTE Pharm Prophylaxis d/t: No contraindications VTE Diagnosis: No VTE Type: NONE VTE Confirmed by (Test): NONE Severe Sepsis Severe Sepsis Present: No Septic Shock Septic Shock Present: No Miscellaneous Documentation Attending Case Discussed With: Dr. Machado Primary Care Physician: NEIL MURDOCK MD Patient sees these Specialists None Level of Patient Care: General Medicine Resident Review Statement Resident Statement: admitted by resident BRITNEY TREVIÑO 07/03/16 0357: Attending MD Review Statement Attending Statement Attending MD Statement: examined this patient, discuss w/resident/PA/ACCOUNT SUPPORT ANALYST, agreed w/resident/PA/ACCOUNT SUPPORT ANALYST, reviewed EMR data (avail), reviewed images, amended to note Attending Assessment/Plan: CC: Recent episode of vomiting blood, alcohol detox PMH: Alcohol dependence, alcohol related seizure, major depressive disorder Patient underwent umbilical hernia repair on 06/20, collins out of pain medications and was taking a lot of ibuprofen. He started to note bloody vomiting. He was sober for 2 years and resumed drinking for pain. He was admitted in [facility] with suspected gastritis and kidney injury secondary to ibuprofen use. He was hydrated, sent home suggesting not to take ibuprofen. After going home he resumed drinking again and was requiring early-morning drinks, today his friend went to check on him and he found him passed out so he brought him to ER for detox as well as bloody vomiting. Vitals: Afebrile, pulse in 70s, RR 18, blood pressure in acceptable range, saturating well on room air. On exam: A O 3, cooperative, no acute distress, neck supple, JVD normal, no lymphadenopathy, mucosa moist, no focal neurological deficit, no dependent edema , no obvious skin rashes or inflammation CVS: S1-S2, RRR. RS: Clear to auscultate bilaterally. Abdomen: Soft, tenderness in left lower quadrant, no guarding or rigidity, surgical wound healing well, ND, bowel sounds present. Labs: CBC, BMP, unremarkable, creatinine 1.8, lactate 2.0, AST 66, ALT 74, bilirubin 0.4, INR 1.1, serum alcohol 340, urine cannabis 65 CT abdomen and pelvis with IV contrast: 1. Very subtle findings are seen with suggestion of gastric wall thickening involving the fundus and body with minimal surrounding hyperemia and adenitis. Findings are best appreciated on the thin section images and in the clinical setting provided, raise the question of subtle gastritis. Endoscopic correlation is requested. 2. No evidence of bowel obstruction or perforation is seen. 3. Scattered colonic diverticulosis with no evidence of acute diverticulitis. 4. Abnormal infiltration of the skin and the underlying fat in the periumbilical region. This may be related to acute cellulitis/panniculitis versus posttraumatic or postsurgical change. Close clinical correlation is requested. 5. Nonobstructing mid right renal calcification. A and P + Upper GI bleed secondary to gastritis, currently not bleeding, H&H stable, hemodynamically stable + Alcohol withdrawal, detox : Watch for alcohol related seizures - Admit to general med - IV Protonix twice a day - Continue gentle hydration - Replace electrolytes, thiamine, folate - Check phosphate today and tomorrow - Advance diet as tolerated - GI consult if dropping H&H are any repeat bloody vomiting - Librium 25 mg by mouth 3 times a day - When necessary Ativan according to CIWA protocol - DVT prophylaxis with Alps only in setting of GI bleed, adequate pain control -Watch for left lower quadrant abdominal tenderness, it serial clinical exams, recent hernia repair surgery
--- NOTE | 2016-07-02 21:21 | NUR ---
EVAL BY HOUSESTAFF, PT WITHOUT VISABLE TREMORS. BUT REQUESTS ATIVAN PT TO BR WITH STEADY GAIT, NO VISABLE TREMORS WHEN REACHING FOR DRINK OF SODA.
[2016-07-02 21:27] VITALS: BP 126/72
--- NOTE | 2016-07-02 21:50 | NUR ---
BED ASSIGNMENT 206-
--- NOTE | 2016-07-02 22:18 | NUR ---
BED ASSIGNMENT [id number]
--- NOTE | 2016-07-02 22:29 | NUR ---
REPORT TO RATIKATHY,
--- NOTE | 2016-07-02 22:34 | NUR ---
PT HAS HAD NO ACTIVE BLEEDING OR VOMITUS SINCE ASSUMING CARE AT 1900.
--- NOTE | 2016-07-02 22:46 | NUR ---
PT UPTO FLOOR, PT PAPERWORK TO FOLLOW.
[2016-07-02 23:03] VITALS: BP 144/70
[2016-07-03] VITALS (9 sets, daily range): BP systolic 130–148; BP diastolic 68–90
--- NOTE | 2016-07-03 01:00 | NUR ---
RECEIVED PT FROM ER @ 7111. A/O X3. VSS ON RA. S/P UMBILICAL HERNIA REPAIR ON 06/21/16. HEALING SURGICAL INCISION W/SUTURES TO THE ABDOMEN. NO DRAINAGE OR INFLAMMATION NOTED. PT GETTING BANANA BAG. ON CIWA SCORING 0-2. DENIES SI AT THIS TIME. PT STATES THAT HE FEELS SAFE HERE AND KNOW THAT HE WILL BE TAKEN CARE OF. SKIN CDI. ALPS PLACED. SEIZURE PRECAUTIONS STARTED. CONT OB MONITOR AT BEDSIDE. INDEPENDENT OOB. NO ACUTE DISTRESS. WILL MONITOR.
--- NOTE | 2016-07-03 03:58 | Admission Certification ---
Admission Certification Certification Statement - As attending physician, I certify that at the time of - admission, based on clinical presentation, severity of - symptoms, need for further diagnostic testing and - therapeutic interventions, and risk of adverse outcomes - without in-hospital treatment, in my clinical assessment, - this patient requires an acute hospital stay for a minimum - of two nights or longer. I have also considered psychsocial - factors such as support system, advanced age, financial - issues, cognitive issues, and failed out-patient treatments, - past re-admission history, safety of patient, and lack of - compliance as applicable. Specific rationale supporting this admission is: Gastritis with upper GI bleed, alcohol detox
[2016-07-03 09:32] LABS: ABSOLUTE BASOPHIL COUNT 0 /CUMM (0.0-0.2); ABSOLUTE EOSINOPHIL COUNT 0.3 /CUMM (0.0-0.7); ABSOLUTE GRANULOCYTE CT 5.1 /CUMM (1.4-6.5); ABSOLUTE LYMPH COUNT 0.9 /CUMM (1.2-3.4); ABSOLUTE MONOCYTE COUNT 0.5 /CUMM (0.10-0.60); BASOPHIL % 0.3 % (0.0-2.0); GRANULOCYTE % 74.1 % (42.2-75.2); MEAN CORPUSCULAR HGB CONC 33.6 G/DL (33.0-37.0); MEAN CORPUSCULAR VOLUME 86.4 FL (80.0-94.0); MEAN PLATELET VOLUME 7.8 FL (7.4-10.4); PLATELET COUNT 191 /CUMM (130-400); RBC DISTRIBUTION WIDTH 14.1 % (11.5-14.5); RED BLOOD CELL CT 4.51 /CUMM (4.70-6.10); WHITE BLOOD CELL COUNT 6.8 /CUMM (4.8-10.8)
--- NOTE | 2016-07-03 13:52 | PN- Att Addend ---
Attending Addendum Attending Brief Note 45M PMH alcohol dependence, major depressive disorder, SI, PTSDalcohol withdrawal seizure in August 2013 status post 9 days of umbilical repair mesh revision admitted for hematemsis, intractable nausea and vomiting, history of upper GI bleed, alcohol withdrawal, and diffuse abdominal pain. Patient has not vomited since admission and is tolerating regular diet well, though he does have intermittent nausea. He reports persistent abdominal pain at his hernia site. He appears agitated, mildly diaphoretic, and tremulous. Hemodynamically stable, labs reviewed. 13-point review of systems negative AFVSS Mildly agitated NCAT Supple RRR CTAB Soft, NTND No c/c/e Pulses intact Mildly tremulous, no tongue fasciculations, A&Ox3 Current Medications Sig/Farzaneh Start time Last Medication Dose Route Stop Time Status Admin Acetaminophen 1,000 MG Q6P PRN 07/02 2099 AC 07/03 N/A 1 UNIT IV 1026 Acetaminophen 325 MG Q6P PRN 07/02 2100 AC PO Chlordiazepoxide HCl 50 MG TID 07/03 1600 AC PO Chlordiazepoxide HCl 25 MG ONCE ONE 07/03 1330 DC PO 07/03 1331 Chlordiazepoxide HCl 25 MG TID 07/02 2250 DC 07/03 PO 1013 Cyanocobalamin/ 1 BAG 0 07/03 2199 AC Thiamine/Pyridoxine IV 07/05 0559 Sodium Chloride 1,000 ML Cyanocobalamin/ 1 BAG DAILY 07/02 2025 DC 07/02 Thiamine/Pyridoxine IV 07/03 0425 2147 Sodium Chloride 1,000 ML Folic Acid 1 MG DAILY 07/03 1000 AC 07/03 PO 0958 Heparin Sodium 5,000 UNIT Q8 07/02 2200 DC 07/02 (Porcine) SC 2315 Ibuprofen 600 MG Q6P PRN 07/02 2029 DC PO Lorazepam 0 .STK-MED ONE 07/02 2132 DC PO Lorazepam 0 Q1P PRN 07/02 2029 AC 07/03 IV 1231 Lorazepam 2 MG Q6 07/02 2025 DC 07/02 PO 2130 Morphine Sulfate 2 MG Q8P PRN 07/02 2030 AC 07/03 IV 0724 Multivitamins 1 TAB DAILY 07/03 1000 AC 07/03 PO 0957 Nicotine 14 MG DAILY 07/03 1000 AC 07/03 TOP 1016 Omeprazole 40 MG DAILY AC 07/03 0700 CAN PO Ondansetron HCl 4 MG Q6P PRN 07/02 2100 AC 07/03 IV 1231 Pantoprazole Sodium 40 MG DAILY 07/03 1000 CAN IV Pantoprazole Sodium 40 MG DAILY 07/03 1000 CAN IV Pantoprazole Sodium 40 MG BID 07/03 1000 AC 07/03 IV 0957 Thiamine HCl 100 MG DAILY 07/03 1000 AC 07/03 PO 0957 Thiamine HCl 100 MG ONCE ONE 07/02 2300 DC 07/02 Sodium Chloride 100 ML IV 07/02 2359 2354 Laboratory Tests 07/03 621 Chemistry Phosphorus (2.5 - 4.5 mg/dL) 3.4 Magnesium (1.6 - 2.3 mg/dL) 1.7 Total Bilirubin (0.2 - 1.3 mg/dL) 0.7 Direct Bilirubin (< 0.4 mg/dL) 0.2 AST (17 - 59 U/L) 49 ALT (21 - 72 U/L) 62 Alkaline Phosphatase (< 127 U/L) 64 Total Protein (6.3 - 8.2 g/dL) 5.2 L Albumin (3.5 - 5.0 g/dL) 3.2 L Hematology CBC w Diff NO MAN DIFF REQ WBC (4.8 - 10.8 /CUMM) 6.8 RBC (4.70 - 6.10 /CUMM) 4.51 L Hgb (14.0 - 18.0 G/DL) 13.1 L Hct (42 - 52 %) 39.0 L MCV (80.0 - 94.0 FL) 86.4 MCH (27.0 - 31.0 PG) 29.0 RDW (11.5 - 14.5 %) 14.1 Plt Count (130 - 400 /CUMM) 191 MPV (7.4 - 10.4 FL) 7.8 Gran % (42.2 - 75.2 %) 74.1 Lymphocytes % (20.5 - 51.1 %) 13.8 L Monocytes % (1.7 - 9.3 %) 6.8 Eosinophils % (0 - 5 %) 5.0 Basophils % (0.0 - 2.0 %) 0.3 Absolute Granulocytes (1.4 - 6.5 /CUMM) 5.1 Absolute Lymphocytes (1.2 - 3.4 /CUMM) 0.9 L Absolute Monocytes (0.10 - 0.60 /CUMM) 0.5 Absolute Eosinophils (0.0 - 0.7 /CUMM) 0.3 Absolute Basophils (0.0 - 0.2 /CUMM) 0 PUBS MCHC (33.0 - 37.0 G/DL) 33.6 1. Alcohol withdrawal without delirium 2. Hematemesis 3. Intractable non-cyclic nausea and vomiting 4. Tremors Plan - Contine on general medicine - Increase Librium to 50mg TID - Ativan 2mg IV q1h PRN CIWA - Vitamin supplementation - Zofran PRN - Tylenol PRN - Monitor CBC daily - IV hydration - COtninue home medications - DVT PPx
--- NOTE | 2016-07-03 19:16 | PN- Housestaff ---
Subjective Follow-up For: Hematemesis Subjective: Patient has not vomited. Tolerating diet. Review of Systems Constitutional: Reports: see HPI. Objective Last 24 Hrs of Vital Signs/I&O Vital Signs Date Time Temp Pulse Resp B/P B/P Pulse O2 O2 Flow FiO2 Mean Ox Delivery Rate 07/03 1901 98.2 63 20 140/68 95 Room Air 05/07 1600 99.1 68 17 144/70 05/07 1546 98.2 67 18 96 05/ 1457 68 16 144/82 98 Room Air 05/07 1200 97.9 88 16 140/78 05/07 0800 98.0 64 16 146/88 05/07 0640 98.1 64 16 148/90 95 Room Air 05/ 0032 98.2 71 18 138/70 92 Room Air / 2303 98.1 68 20 144/70 93 Room Air / 2127 80 20 126/72 05/06 2126 80 20 126/72 95 Intake & Output / 1600 05/07 0800 05/07 0000 Intake Total 500 1100 Output Total 200 Balance 300 1100 Intake, IV 1000 Intake, Oral 500 100 Output, 200 Emesis Patient 180 lb Weight Weight Reported by Patient Measurement Method Physical Exam General Appearance: Alert, Oriented X3 Cardiovascular: Regular Rate, Normal S1, Normal S2 Lungs: Clear to Auscultation, Normal Air Movement Abdomen: Normal Bowel Sounds, Soft Extremities: No Clubbing, No Cyanosis, No Edema Assessment/Plan Assessment: 45 year old gentleman here with Alcohol withdrawal, Hematemesis and tremors. Librium increased to 50mg TID per CIWA, MVI and Folate. Zofran PRN. CBC in am. Continue Hydration. Continue Protonix. Problem List: 1. Alcohol abuse Pain Ratin Pain Location: Epigastrium Pain Goal: Remain pain free Pain Plan: Tylenol and Morphine. Tomorrow's Labs & Rationales: CBC hematemeis.
[2016-07-04] VITALS (11 sets, daily range): BP systolic 134–164; BP diastolic 78–102
[2016-07-04 08:52] LABS: ABSOLUTE BASOPHIL COUNT 0 /CUMM (0.0-0.2); ABSOLUTE EOSINOPHIL COUNT 0.5 /CUMM (0.0-0.7); ABSOLUTE GRANULOCYTE CT 4.4 /CUMM (1.4-6.5); ABSOLUTE LYMPH COUNT 0.9 /CUMM (1.2-3.4); ABSOLUTE MONOCYTE COUNT 0.5 /CUMM (0.10-0.60); BASOPHIL % 0.4 % (0.0-2.0); EOSINOPHIL % 7.2 % (0-5); GRANULOCYTE % 70.9 % (42.2-75.2); HEMATOCRIT 40.9 % (42-52); MEAN CORPUSCULAR HGB 28.9 PG (27.0-31.0); MEAN CORPUSCULAR HGB CONC 33.3 G/DL (33.0-37.0); MEAN CORPUSCULAR VOLUME 86.7 FL (80.0-94.0); MEAN PLATELET VOLUME 7.9 FL (7.4-10.4); PLATELET COUNT 184 /CUMM (130-400); RBC DISTRIBUTION WIDTH 14.4 % (11.5-14.5); RED BLOOD CELL CT 4.72 /CUMM (4.70-6.10); WHITE BLOOD CELL COUNT 6.3 /CUMM (4.8-10.8)
--- NOTE | 2016-07-04 12:13 | Incdntl Nt Psy ---
Incidental Note Notation: Discussed case with attending who does not feel psych consult is warrented at this time. Please reorder consult if needed.
--- NOTE | 2016-07-04 12:39 | PN- Housestaff ---
ONEL ROWAN 07/04/16 1239: Subjective Follow-up For: Alcohol withdrawal History of hematemesis and black tarry stools Abdominal pain status post umbilical repair mesh revision 2 weeks ago Subjective: No overnight events. This morning patient is complaining of 4/10 abdominal pain. He did not have any hematemesis or bloody bowel movements since admission. He is also complaining of having 3 times nonbloody loose stool since morning. He is anxious about stitches on his surgical site and wants someone to take them out. Denies any suicidal or homicidal ideation. He feels improved. Review of Systems Constitutional: Reports: see HPI. Objective Last 24 Hrs of Vital Signs/I&O Vital Signs Date Time Temp Pulse Resp B/P B/P Pulse O2 O2 Flow FiO2 Mean Ox Delivery Rate 07/04 1000 97.8 69 20 142/102 / 0824 98.4 71 20 150/100 99 Room Air 05/08 0800 98.4 71 20 150/100 05/08 0630 98.6 60 20 164/100 97 Room Air /08 0600 98.6 60 20 164/100 05/08 0204 98.5 58 20 150/94 95 Room Air 05/08 0200 98.5 58 20 150/94 05/ 2259 98.7 88 20 130/80 96 05/ 2000 98.7 64 16 142/76 05/ 1901 98.2 63 20 140/68 95 Room Air 05/07 1600 99.1 68 17 144/70 05/07 1546 98.2 67 18 96 05/ 1457 68 16 144/82 98 Room Air Intake & Output 07/04 1600 /08 0800 /08 0000 Intake Total 800 1875 Output Total Balance 800 1875 Intake, IV 750 375 Intake, Oral 50 1500 Number 0 1 Bowel Movements Physical Exam General Appearance: Alert, Oriented X3, Cooperative, No Acute Distress Neck: Supple Cardiovascular: Regular Rate, No Murmurs Lungs: Clear to Auscultation Abdomen: Normal Bowel Sounds, Soft, mild tenderness on palpation around surgical site, scar looks well-healed. 1 big loose Stitch is present in middle and 1 more samll broken stitch at the left end of horizontal scar Neurological: Normal Speech, Strength at 5/5 X4 Ext, Sensation Intact, Cranial Nerves 3-12 NL Extremities: No Edema Current Medications: Current Medications Sig/Farzaneh Start time Last Medication Dose Route Stop Time Status Admin Acetaminophen 1,000 MG .STK-MED ONE 07/03 1626 DC IV 07/03 1627 Acetaminophen 1,000 MG Q6P PRN 07/02 2099 AC 07/04 N/A 1 UNIT IV 1205 Acetaminophen 325 MG Q6P PRN 07/02 2099 AC PO Chlordiazepoxide HCl 50 MG Q12 07/04 2199 AC PO Chlordiazepoxide HCl 50 MG Q8 07/04 599 DC 07/04 PO 0648 Chlordiazepoxide HCl 50 MG TID 07/03 1600 DC 07/03 PO 2119 Chlordiazepoxide HCl 25 MG ONCE ONE 07/03 1330 DC 07/03 PO 07/03 1331 1429 Chlordiazepoxide HCl 25 MG TID 07/02 2250 DC 07/03 PO 1013 Cyanocobalamin/ 1 BAG 07/03 DC 07/03 Thiamine/Pyridoxine IV 07/05 0559 2002 Sodium Chloride 1,000 ML Folic Acid 1 MG DAILY 07/03 1000 AC 07/04 PO 0851 Lorazepam 0 Q1P PRN 07/02 2030 AC 07/03 IV 1231 Morphine Sulfate 2 MG Q8P PRN 07/02 2030 AC 07/03 IV 0724 Multivitamins 1 TAB DAILY 07/03 1000 AC 07/04 PO 0851 Nicotine 14 MG DAILY 07/03 1000 AC 07/04 TOP 0851 Omeprazole 40 MG DAILY AC 07/05 699 AC PO Ondansetron HCl 4 MG Q6P PRN 07/02 2100 AC 07/04 IV 1020 Pantoprazole Sodium 40 MG BID 07/03 1000 DC 07/04 IV 0851 Patient Medication 1 UNIT 07/04 AC Teaching ED 07/04 220 Thiamine HCl 100 MG DAILY 07/03 1000 AC 07/04 PO 0851 Last 24 Hrs of Lab/Fabrizio Results Last 24 Hrs of Labs/Mics: Laboratory Tests 07/04/16 0735: CBC w Diff NO MAN DIFF REQ, RBC 4.72, MCV 86.7, MCH 28.9, RDW 14.4, MPV 7.9, Gran % 70.9, Lymphocytes % 13.9 L, Monocytes % 7.6, Eosinophils % 7.2 H, Basophils % 0.4, Absolute Granulocytes 4.4, Absolute Lymphocytes 0.9 L, Absolute Monocytes 0.5, Absolute Eosinophils 0.5, Absolute Basophils 0, PUBS MCHC 33.3 Orders CIWA Score (last 24 hrs): overnight 0-1 Assessment/Plan Assessment: He is 45-year-old man with past medical history of alcohol dependence, alcohol withdrawal seizures, major depressive disorder, suicidal ideation in the past and PTSD. History of umbilical hernia repair 7 years ago, now status post umbilical repair mesh revision at least 2 weeks ago has been admitted here on general medicine floor for following problems: 1. Alcohol withdrawal. On CIWA protocol and Ativan as needed per CIWA. On Librium taper 2. History of hematemesis and black tarry stool. Could be due to excessive NSAID use per patient. No episode since admission. H&H stable 3. Abdominal pain secondary to recent umbilical repair mesh revision about 2 weeks ago 4. Transaminitis most likely secondary to alcohol abuse. Not resolved 5. Polysubstance abuse. Utox positive for cannabis and amphetamines PLAN * Monitor vitals closely * Watch for any bloody bowel movements or hematemesis * Monitor H&H * Continue CIWA protocol and Ativan as needed per CIWA * Decrease Librium to 50 mg Q12 today * Continue multivitamins/thiamine/folic acid * Continue Zofran as needed * Continue Tylenol and morphine for pain management * Social work consult * Subcutaneous Lovenox for DVT prophylaxis. H&H is stable * Regular diet * Full code Problem List: 1. Alcohol abuse Pain Ratin Pain Location: abdomen Pain Goal: Pain 4 or less Pain Plan: Tylenol and morphine Tomorrow's Labs & Rationales: cbc DVT/Prophylaxis: pharmacological MARY CHUNG MD 07/04/16 1548: Attending MD Review Statement Attending Statement Attending MD Statement: examined this patient, discuss w/resident/PA/DAYCARE MANAGER, agreed w/resident/PA/DAYCARE MANAGER, reviewed EMR data (avail) Attending Assessment/Plan: 45M PMH alcohol dependence, major depressive disorder, SI, PTSDalcohol withdrawal seizure in August 2013 status post 9 days of umbilical repair mesh revision admitted for hematemsis, intractable nausea and vomiting, history of upper GI bleed, alcohol withdrawal, and diffuse abdominal pain. Patient has not vomited since admission and is tolerating regular diet well, though he does have intermittent nausea. He reports persistent abdominal pain at his hernia site. Hernia suture was removed today by surgical PA. Patient appears clinically improved, not diaphoretic, does not appear tremulous, though he does appear agitated, this may be secondary to anxiety. 13-point review of systems negative AFVSS Mildly agitated NCAT Supple RRR CTAB Soft, NTND No c/c/e Pulses intact Mildly tremulous, no tongue fasciculations, A&Ox3 1. Alcohol withdrawal without delirium 2. Hematemesis 3. Intractable non-cyclic nausea and vomiting 4. Tremors Plan - Continue on general medicine - Taper Librium to 50mg q12h - Ativan 2mg IV q1h PRN CIWA - Vitamin supplementation - Zofran PRN - Tylenol PRN - Percocet 1 tab q12h PRN severe pain - Monitor CBC daily - IV hydration - Continue home medications - Social work consult - Psychiatry consult, as patient has expressed SI, though not to me directly (he denies this to me) - DVT PPx
--- NOTE | 2016-07-04 13:57 | Event Note ---
Event Note Event Note: Pt is a 45 yo M who is s/p removal of umbilical mesh and revision umbilical hernia repair on 06/21/[address] Mercado at [facility]. He was admitted to on 07/02/16 for ETOH withdrawal. I was called by the admitting team to assess pt for a retained stitch. Pt states that 1-2 stitches were removed with the steri strips when he arrived to the hospital. On exam, there is a well healed 8 cm, horizontal, surgical incision at the site of the umbilicus. It contains a loop of nylon suture material at the mid-section. I spoke with Dr. Mercado directly and he states that this was a running subcuticular nylon suture with a loop left centrally for removal. Ok to pull the suture, which I did without difficulty. Pt should continue to wear the compression binder and can follow up with his surgeon as an outpatient.
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
[2016-07-05 02:00] VITALS: BP 134/92
[2016-07-05 02:05] VITALS: BP 134/92
[2016-07-05 06:00] VITALS: BP 120/90
[2016-07-05 08:00] VITALS: BP 120/90
[2016-07-05 08:06] LABS: ABSOLUTE BASOPHIL COUNT 0 /CUMM (0.0-0.2); ABSOLUTE EOSINOPHIL COUNT 0.4 /CUMM (0.0-0.7); ABSOLUTE GRANULOCYTE CT 4.3 /CUMM (1.4-6.5); ABSOLUTE LYMPH COUNT 1.1 /CUMM (1.2-3.4); ABSOLUTE MONOCYTE COUNT 0.4 /CUMM (0.10-0.60); BASOPHIL % 0.3 % (0.0-2.0); GRANULOCYTE % 68.5 % (42.2-75.2); HEMATOCRIT 40.6 % (42-52); MEAN CORPUSCULAR HGB 29.3 PG (27.0-31.0); MEAN CORPUSCULAR HGB CONC 33.5 G/DL (33.0-37.0); MEAN CORPUSCULAR VOLUME 87.3 FL (80.0-94.0); PLATELET COUNT 181 /CUMM (130-400); RED BLOOD CELL CT 4.65 /CUMM (4.70-6.10); WHITE BLOOD CELL COUNT 6.2 /CUMM (4.8-10.8)
--- NOTE | 2016-07-05 09:16 | PN- Housestaff ---
Subjective Follow-up For: Alcohol withdrawal History of hematemesis and black tarry stools Abdominal pain status post umbilical repair mesh revision 2 weeks ago Subjective: No overnight events. This morning patient is complaining of 4/10 abdominal pain. He did not have any hematemesis or bloody bowel movements since admission. He feels improved and then used his breakfast this morning. He denies any nausea right now. He wants to discuss different treatment options for opioid dependence. Yesterday surgical PA removed stitch from surgical site. Review of Systems Constitutional: Reports: see HPI. Objective Last 24 Hrs of Vital Signs/I&O Vital Signs Date Time Temp Pulse Resp B/P B/P Pulse O2 O2 Flow FiO2 Mean Ox Delivery Rate 07/06 799 97.6 66 20 120/90 07/05 0600 97.6 66 20 120/90 / 0600 97.6 66 20 120/90 96 Room Air / 0205 97.5 53 20 134/92 97 Room Air / 0200 97.5 53 20 134/92 / 2231 97.8 67 18 146/100 97 /08 2200 97.8 67 18 146/100 / 1600 98.1 70 18 134/78 /08 1354 98.0 71 20 150/100 98 Room Air / 1000 97.8 69 20 142/102 Intake & Output 07/05 1600 07/05 0800 07/05 0000 Intake Total 490 250 Output Total Balance 490 250 Intake, IV 10 10 Intake, Oral 480 240 Physical Exam General Appearance: Alert, Oriented X3, Cooperative, No Acute Distress Cardiovascular: Regular Rate, No Murmurs Lungs: Clear to Auscultation Abdomen: Normal Bowel Sounds, Soft, No Tenderness, small horizontal surgical scar, well healed Neurological: Normal Speech, Strength at 5/5 X4 Ext, Sensation Intact, Cranial Nerves 3-12 NL Extremities: No Edema, fine tremors both hands Current Medications: Current Medications Sig/Farzaneh Start time Last Medication Dose Route Stop Time Status Admin Acetaminophen 1,000 MG .STK-MED ONE 07/04 1204 DC IV 07/04 1205 Acetaminophen 1,000 MG Q6P PRN 07/02 2100 DC 07/04 N/A 1 UNIT IV 1205 Acetaminophen 325 MG Q6P PRN 07/02 2100 AC 07/05 PO 0432 Chlordiazepoxide HCl 50 MG ONCE ONE 07/05 0645 DC 07/05 PO 07/05 0746 0845 Chlordiazepoxide HCl 50 MG Q12 07/04 220 DC 07/04 PO 2104 Chlordiazepoxide HCl 50 MG Q8 07/04 06 DC 07/04 PO 0648 Dicyclomine HCl 20 MG ONCE ONE 07/04 2014 DC 07/04 PO 07/04 Enoxaparin Sodium 40 MG DAILY 07/04 1325 AC 07/05 SC 0846 Folic Acid 1 MG DAILY 07/03 1000 AC 07/05 PO 0845 Lorazepam 0 Q1P PRN 07/02 2030 AC 07/03 IV 1231 Morphine Sulfate 2 MG Q8P PRN 07/02 2030 DC 07/03 IV 0724 Multivitamins 1 TAB DAILY 07/03 1000 AC 07/05 PO 0845 Naltrexone HCl 50 MG DAILY 07/05 1000 AC 07/05 PO 0846 Nicotine 14 MG DAILY 07/03 1000 AC 07/05 TOP 0845 Omeprazole 40 MG DAILY AC 07/05 0700 AC 07/05 PO 0432 Ondansetron HCl 4 MG .STK-MED ONE 07/04 1012 DC IM 07/04 1013 Ondansetron HCl 4 MG Q6P PRN 07/02 2100 AC 07/04 IV 1020 Oxycodone/ 1 TAB Q12P PRN 07/04 1700 AC 07/04 Acetaminophen PO 2119 Oxycodone/ 1 TAB Q4P PRN 07/04 1445 DC 07/04 Acetaminophen PO 1639 Pantoprazole Sodium 40 MG BID 07/03 1000 DC 07/04 IV 0851 Patient Medication 1 UNIT 0 07/04 2199 OK 07/04 Teaching ED 07/04 2200 2103 Patient Medication 1 ED .STK-MED ONE 07/04 1405 [facility] ED 07/04 1406 Thiamine HCl 100 MG DAILY 07/03 1000 AC 07/05 PO 0845 Last 24 Hrs of Lab/Fabrizio Results Last 24 Hrs of Labs/Mics: Laboratory Tests 07/05/16 0610: CBC w Diff NO MAN DIFF REQ, RBC 4.65 L, MCV 87.3, MCH 29.3, RDW 14.0, MPV 8.0, Gran % 68.5, Lymphocytes % 17.2 L, Monocytes % 7.0, Eosinophils % 7.0 H, Basophils % 0.3, Absolute Granulocytes 4.3, Absolute Lymphocytes 1.1 L, Absolute Monocytes 0.4, Absolute Eosinophils 0.4, Absolute Basophils 0, PUBS MCHC 33.5 Assessment/Plan Assessment: He is 45-year-old man with past medical history of alcohol dependence, alcohol withdrawal seizures, major depressive disorder, suicidal ideation in the past and PTSD. History of umbilical hernia repair 7 years ago, now status post umbilical repair mesh revision at least 2 weeks ago has been admitted here on general medicine floor for following problems: 1. Alcohol withdrawal. On CIWA protocol and Ativan as needed per CIWA. On Librium taper 2. History of hematemesis and black tarry stool. Could be due to excessive NSAID use per patient. No episode since admission. H&H stable 3. Abdominal pain secondary to recent umbilical repair mesh revision about 2 weeks ago 4. Transaminitis most likely secondary to alcohol abuse. Now resolved 5. Polysubstance abuse. Utox positive for cannabis and amphetamines. On Naltrexone PLAN * H&H stable * Continue CIWA protocol and Ativan as needed per CIWA. Did not require any IV Ativan yesterday and overnight * One last dose of Librium 50 mg today * Continue multivitamins/thiamine/folic acid * Continue Zofran as needed * Continue Tylenol for pain management. Will discontinue Percocet today * Social work consult * Psych consult appreciated. Continue Naltrexone. * Subcutaneous Lovenox for DVT prophylaxis * Regular diet * Full code Problem List: 1. Alcohol abuse Pain Ratin Pain Location: abdomen Pain Goal: Remain pain free Pain Plan: percocet Tomorrow's Labs & Rationales: none DVT/Prophylaxis: pharmacological
[2016-07-05] MEDS ORDERED: FOLIC ACID1 M1 PO (09:30)
[2016-07-05] MEDS ORDERED: ONE DAILY MULT1 EAC2 PO (09:30)
[2016-07-05] MEDS ORDERED: VITAMIN B-1100 MG PO (09:31)
[2016-07-05 09:34] VITALS: BP 150/98
--- NOTE | 2016-07-05 09:51 | Discharge Summary ---
Visit Information Visit Dates Admission Date: 07/02/16 Discharge Date: 07/05/16 Hospital Course Course Attending Physician: MARY CHUNG MD Primary Care Physician: NEIL MURDOCK MD Consulting Request: Consulting Specialty: Psychiatry Hospital Course: He is 45-year-old man with past medical history of Alcohol dependence, alcohol related seizure in 2013, major depressive disorder, polysubstance abuse, suicidal ideation in the past and PTSD. History of umbilical hernia repair 7 years ago, status post umbilical repair mesh revision at least 2 weeks prior to admission on 06/20/2016, history of hematemesis and black tarry stools recently presented to ER for evaluation of alcohol intoxication. Vitals: Afebrile, pulse in 70s, RR 18, blood pressure in acceptable range, saturating well on room air. On exam: A O 3, cooperative, no acute distress, neck supple, JVD normal, no lymphadenopathy, mucosa moist, no focal neurological deficit, no dependent edema , no obvious skin rashes or inflammation CVS: S1-S2, RRR. RS: Clear to auscultate bilaterally. Abdomen: Soft, tenderness in left lower quadrant, no guarding or rigidity, surgical wound healing well, ND, bowel sounds present. Labs: CBC, BMP, unremarkable, creatinine 1.8, lactate 2.0, AST 66, ALT 74, bilirubin 0.4, INR 1.1, serum alcohol 340, urine cannabis 65 CT abdomen and pelvis with IV contrast: 1. Very subtle findings are seen with suggestion of gastric wall thickening involving the fundus and body with minimal surrounding hyperemia and adenitis. Findings are best appreciated on the thin section images and in the clinical setting provided, raise the question of subtle gastritis. Endoscopic correlation is requested. 2. No evidence of bowel obstruction or perforation is seen. 3. Scattered colonic diverticulosis with no evidence of acute diverticulitis. 4. Abnormal infiltration of the skin and the underlying fat in the periumbilical region. This may be related to acute cellulitis/panniculitis versus posttraumatic or postsurgical change. Close clinical correlation is requested. 5. Nonobstructing mid right renal calcification. He was admitted on general medicine floor for alcohol detox and history of upper GI bleed. He was started on CIWA protocol, IV Ativan as needed per CIWA and scheduled PO Ativan. Scheduled Ativan was later on switched to Librium taper. He was also seen by psych and different options for alcohol cravings were discussed. Patient was more interested to start Vivitrol injections but because of unavailability in hospital he was started on 50 MG DAILY. He was also seen by social work nurse. Patient did not have a single episode of hemoptysis or black tarry stools in hospital. His H&H was stable throughout the course of hospitalization. As patient recently had a revision of umbilical hernia repair so his abdominal pain was adequately managed. There was a retained stitch at surgical site. Scar was well-healed without any signs of infection. Stitch was removed by surgical PA in hospital. Allergies: Coded Allergies: lithium (Intermediate, RASH 07/02/16) Disposition Summary Disposition Principal Diagnosis: Alcohol detox Additional Diagnosis: Polysubstance abuse Discharge Disposition: home or self care Discharge Instructions General Discharge Information Code Status: Full Code Patient's Diet: Regular diet Patient's Activity: Independent Follow-Up Instructions/Appts: 1. Please follow-up with your primary care provider next week after discharge 2. Please follow-up with your support program regarding alcohol withdrawal and to continue AA meetings after discharge 3. Please follow-up with your surgeon after discharge Medications at Discharge Discharge Medications: Continue taking these medications: Pantoprazole Sodium (Pantoprazole Sodium) 40 MG TABLET. 1 Tablet ORAL DAILY Qty = 30 Comments: HAS NOT STARTED TAKING Start taking the following new medications: Folic Acid (Folic Acid) 1 MG TABLET 1 Tablet ORAL DAILY Qty = 30 No Refills Comments: Last Taken:07/05/16 Time:0900 Multivitamin (One Daily Multivitamin) 1 EACH TABLET 1 Tablet ORAL DAILY Qty = 30 No Refills Comments: Last Taken:07/05/16 Time:0900 Naltrexone HCl (Naltrexone HCl) 50 MG TABLET 1 Tablet ORAL DAILY Qty = 30 No Refills Comments: Last Taken:07/05/16 Time:0900 Thiamine HCl (Vitamin B-1) 100 MG TABLET 1 Tablet ORAL DAILY Qty = 30 No Refills Comments: Last Taken:07/05/16 Time:0900 Chlordiazepoxide HCl (Chlordiazepoxide HCl) 25 MG CAPSULE 1 Tablet ORAL ONE TIME Qty = 1 No Refills Comments: Last Taken:07/05/16 Time:0900 Copies To: MATHIEU DORSEY,NEIL
--- NOTE | 2016-07-05 09:51 | Patient Discharge Instructions ---
Discharge Instructions General Discharge Information You were seen/treated for: Alcohol withdrawal History of hematemesis and black tarry stools Abdominal pain status post umbilical repair mesh revision 2 weeks ago Special Instructions: 1. Please follow-up with your primary care provider next week after discharge 2. Please follow-up with your support program regarding alcohol withdrawal and to continue AA meetings after discharge Diet Continue normal diet: Yes Activity Full Activity/No Limits: Yes Acute Coronary Syndrome Inclusion Criteria At DC or during hospital stay patient has or had the following: ACS DIAGNOSIS No Discharge Core Measures Meds if any: Prescribed or Continued at Discharge Meds if any: NOT Prescribed or Continued at Discharge Congestive Heart Failure Inclusion Criteria At DC or during hospital stay patient has or had the following: CHF DIAGNOSIS No Discharge Core Measures Meds if any: Prescribed or Continued at Discharge Meds if any: NOT Prescribed or Continued at Discharge Cerebrovascular accident Inclusion Criteria At DC or during hospital stay patient has or had the following: CVA/TIA Diagnosis No Discharge Core Measures Meds if any: Prescribed or Continued at Discharge Meds if any: NOT Prescribed or Continued at Discharge Venous thromboembolism Inclusion Criteria VTE Diagnosis No VTE Type NONE VTE Confirmed by (Test) NONE Discharge Core Measures - Per Current guidelines, there needs to be overlap - treatment for the first 5 days of Warfarin therapy. - If discharged on Warfarin prior to 5 days of - overlap therapy, the patient will need to be - assessed for post discharge needs including - *Post discharge parental anticoagulation - *Warfarin and/or parental anticoagulation education - *Follow up date to check INR post discharge At least 5 days overlap therapy as Inpatient No Meds if any: Prescribed or Continued at Discharge Note: Overlap Therapy is Warfarin and Anticoagulant Meds if any: NOT Prescribed or Continued at Discharge
[2016-07-05] MEDS ORDERED: NALTREXONE HCL50 M1 PO (13:52)
[2016-07-05] MEDS ORDERED: CHLORDIAZEPOXID25 M3 PO (13:54)
[2016-07-05 14:02] VITALS: BP 140/70
--- NOTE | 2016-07-05 16:19 | NUR ---
Referral received yesterday morning via electronic night order selector. This patient is a 45 year old man, admitted to the hospital on 07/02/16 with a GI Bleed in the setting of ETOH Dependence. I met with Kali this am. He was alert and oriented; pleasant and engaged in interview. He reports plans to return to a "private" sober house; is interested in initiating Medical Assisted Therapy (MAT) with vivitrol and has researched programs which may work for him. Kali identifies a large support network from AA who will be able to assist him upon discharge. Kali had asked that I call the vivitrol prescriber and I did, but in order for Kali to start their program, he needs to make an appointment himself; have lab work done, etc. In the meantime, Kali decided to leave, stating that he had to go check on his mom, who has dementia. Kali has resources and has already called me back. Aware of discharge matilda this afternoon.
== END 2016-07-05 14:16 | DRG 897 ==
LOC: ERH 10:29 → 2NA 21:01 → ENRESERV 21:47 → CANBEDREQ 22:47 → ENRESERV 22:55 → CANRESERV 22:55 → CMPBEDREQ 07-03 11:16 → 2NA 07-04 07:59 → ENPENDDIS 07-05 14:15 → 2NA 07-05 14:16
PROVIDERS: Emergency Medicine; Internal Medicine; Internal Medicine Infectious Disease; Physician Assistant; Student in an Organized Health Care Education/Training Program; ADMIT Internal Medicine
PROC: 2W53XYZ Removal of Other Device on Abdominal Wall (ICD-10-PCS; principal; 2016-07-04)
DX: F10.239 Alcohol dependence with withdrawal, unspecified (principal); F32.9 Major depressive disorder, single episode, unspecified; Y90.8 Blood alcohol level of 240 mg/100 ml or more; F19.10 Other psychoactive substance abuse, uncomplicated; F17.200 Nicotine dependence, unspecified, uncomplicated
CPT/HCPCS: 2NAP; 74177; 80307; 93005; 93010; 96374; G0480; J0131; J1644; J1650; J2405; J3490

== ENCOUNTER 2017-04-15 14:57 | Observation (INO) | payer OTHER ==
[~2017-04-15] VITALS: Ht 172.7 cm; Wt 79.4 kg
[~2017-04-15 14:57] MED LIST: CHLORDIAZEPOXID25 M3 PO; FOLIC ACID1 M1 PO; NALTREXONE HCL50 M1 PO; ONE DAILY MULT1 EAC2 PO; PANTOPRAZOLE SO40 M1 PO; VITAMIN B-1100 MG PO
--- NOTE | 2017-04-15 15:06 | ED PSYCHIATRIC COMPLAINT ---
See Addendum History of Present Illness General Chief Complaint: ETOH/Drug Related Complaint Stated Complaint: ETOH REQ DETOX, +SI Source: patient Exam Limitations: no limitations Vital Signs & Intake/Output Vital Signs & Intake/Output Vital Signs Date Time Temp Pulse Resp B/P B/P Pulse O2 O2 Flow FiO2 Mean Ox Delivery Rate 04/16 0835 97.1 108 16 137/92 04/16 0620 97.9 76 18 128/74 96 Room Air 04/16 0619 97.8 76 18 128/74 04/16 0329 98.7 78 16 117/73 04/16 0329 98.7 78 16 117/73 96 Room Air 04/16 0012 99.9 90 18 140/92 04/15 2350 99.9 90 18 140/92 93 Nasal Cannula 04/15 2011 99.8 105 18 128/84 04/15 2011 99.8 105 18 128/84 93 Room Air 04/15 1725 92 133/88 04/15 1642 95 04/15 1502 97.7 107 16 150/97 94 Room Air ED Intake and Output 04/16 0000 04/15 1200 Intake Total Output Total 450 Balance -450 Output, 300 Emesis Output, Urine 150 Patient 175 lb Weight Weight Reported by Patient Measurement Method Allergies Coded Allergies: No Known Allergies (01/09/17) Triage Note: PT HERE FOR ETOH DETOX AND STATES HE IS FEELING SUICIDAL. PT STATES HE HAS SEIZURES WHEN HE DETOXES FROM ETOH. PT ADMITS TO DRINKING 1.5 PINTS OF VODKA DAILY. PT DENIES DRUG USE. PT DENIES HI. Triage Nurses Notes Reviewed? yes Onset: Abrupt Duration: day(s):, constant Timing: recent history Severity: mild, moderate HPI: 38-year-old male comes into the emergency room for further evaluation of suicidal ideation as well as alcohol detox. Patient reports that he has a history of seizure withdrawal. He has been drinking heavily again. He was discharged from rehabilitation a few weeks back. Last drink was 1 hour ago. Denies any HI. Has no social support. Denies any other drug use. When asked how the patient complains of hurting himself he refuses to answer and says "don' t worry I'lltake care of it". (Everton PRADO,Cooper) Reconcile Medications Amoxicillin 500 MG CAPSULE 2 CAP PO Q6H ABX (Reported) Ibuprofen 800 MG TABLET 1 TAB PO TID PRN PAIN/INFLAMMATION (Reported) (Jay Jay DORSEY,Genaro Johnson) Past History Travel History Traveled to [place] past 21 day No Medical History Any Pertinent Medical History? see below for history Neurological: seizure EENT: NONE Cardiovascular: NONE Respiratory: NONE Gastrointestinal: umbilical hernia Hepatic: NONE Renal: NONE Musculoskeletal: NONE Psychiatric: alcohol dependence, depression Endocrine: NONE Blood Disorders: NONE Cancer(s): NONE LABORATORY APPARATUS GLASS BLOWER/Reproductive: NONE History of MRSA: No History of VRE: No History of CDIFF: No Surgical History Surgical History: hernia repair-umbilical Psychosocial History Who do you live with Patient/Self Services at Home None What is your primary language Kazakh Tobacco Use: Current Daily Use Daily Tobacco Use Amount/Type: => 5 Cigarettes daily ETOH Use: alcoholic Illicit Drug Use: denies illicit drug use Family History Family History, If Any: Relation not specified for: *No pertinent family history Hx Contributory? No (Cooper Barry) Review of Systems Review of Systems Constitutional: Reports: no symptoms. EENTM: Reports: no symptoms. Respiratory: Reports: no symptoms. Cardiovascular: Reports: no symptoms. GI: Reports: no symptoms. Genitourinary: Reports: no symptoms. Musculoskeletal: Reports: no symptoms. Skin: Reports: no symptoms. Neurological/Psychological: Reports: see HPI. Hematologic/Endocrine: Reports: no symptoms. Immunologic/Allergic: Reports: no symptoms. All Other Systems: Reviewed and Negative (Cooper Barry) Physical Exam Physical Exam General Appearance: well developed/nourished, mild distress Head: atraumatic Eyes: Bilateral: normal appearance. Ears, Nose, Throat: normal ENT inspection, hearing grossly normal Neck: normal inspection Respiratory: no respiratory distress Cardiovascular: regular rate/rhythm Extremities: normal range of motion Neurological/Psychiatric: awake, alert Appearance/Memory/Insight: appropriate appearance Behavoir/Eye Contact/Speech: cooperative Thoughts/Hallucinations: no apparent hallucination Skin: intact, normal color, warm/dry SAD PERSONS SAD PERSONS Response Value Male Sex? yes 1 Age <19 or >45 years? yes 1 Depression/Hopelessness? yes 2 Excessive Ethanol/Drug Use? yes 1 Single//? yes 1 Social Support? has no support 1 Stated Future Intent? yes 2 Total 9 SAD PERSONS Done? yes (Cooper Barry) Progress Differential Diagnosis: dementia, drug intoxication, drug overdose, drug withdrawal Plan of Care: Orders Procedure Date/time Status Pathway - chart 04/16 0332 Active Regular Diet 04/15 D Active Add-on Test (ER Only) 04/15 1631 Active EKG 04/15 1631 Active ED CRISIS PSYCH CONSULT 04/[address] in observation 04/15 1539 Active ED Holding Orders 04/15 1539 Active Patient Data 04/15 1539 Active Vital Signs 04/15 1539 Active Code Status 04/15 1539 Active Intake & Output 04/15 1522 Active TROPONIN LEVEL 04/15 1520 Complete LIPASE 04/15 1520 Complete AMYLASE 04/15 1520 Complete Continuous Observation Monitor 04/15 1504 Active CIWA 04/15 1504 Active URINE DRUGS OF ABUSE 04/15 1504 Complete ETHANOL 04/15 1504 Complete COMPREHENSIVE METABOLIC PANEL 04/15 1504 Complete CBC WITHOUT DIFFERENTIAL 04/15 1504 Complete Current Medications Sig/Farzaneh Start time Last Medication Dose Stop Time Status Admin Lorazepam 2 MG Q2P PRN 04/16 0345 AC 04/16 (Ativan) 0855 Lorazepam 1 MG Q2P PRN 04/16 0345 AC 04/16 (Ativan) 0629 Ondansetron HCl 4 MG ONCE ONE 04/15 1715 CAN (Zofran) 04/15 1716 Laboratory Tests 04/15/17 1524: Urine Opiates Screen < 100.00, Methadone Screen < 40, Barbiturate Screen < 60, Ur Phencyclidine Scrn < 6.00, Amphetamines Screen < 100, U Benzodiazepines Scrn < 85, Urine Cocaine Screen < 50, Urine Cannabis Screen < 5.00 04/15/17 1520: Anion Gap 18 H, Estimated GFR > 60, BUN/Creatinine Ratio 22.5, Glucose 98, Calcium 8.9, Total Bilirubin 0.4, AST 28, ALT 31, Alkaline Phosphatase 68, Troponin I < 0.01, Total Protein 7.3, Albumin 4.7, Globulin 2.6, Albumin/ Globulin Ratio 1.8, Amylase 53, Lipase 120, CBC w Diff NO MAN DIFF REQ, RBC 5.26 , MCV 88.5, MCH 30.5, MCHC 34.4, RDW 13.3, MPV 7.2 L, Gran % 80.6 H, Lymphocytes % 12.5 L, Monocytes % 6.1, Eosinophils % 0.8, Basophils % 0, Absolute Granulocytes 11.6 H, Absolute Lymphocytes 1.8, Absolute Monocytes 0.9 H, Absolute Eosinophils 0.1, Absolute Basophils 0, Serum Alcohol 262.0 Hand-Off Endorsed To: Ez Tracy MD Endorsed Time: 2146 Pending: other Comments: Patient is pending a medical admission for inpatient detox. Waiting on case management to get approval from state for admission. (Cooper Barry) Comments: pt has been sen and evaluated by crisis. He is no longer suicidal and is cleared from a psychiatric point of view. (Jay Jay DORSEY,Genaro Johnson) Comments: 04/16/2017 6:53:48 AM patient signed out to me by Dr. Goyal at shift spinning frame changer last night. Patient signed out to Dr. Goyal at shift spinning frame changer after an uneventful emergency department stay overnight. (Rossana DORSEY,Ez Owens) Departure Departure Condition: Stable Clinical Impression Primary Impression: Alcohol withdrawal Secondary Impressions: Suicidal ideation Referrals: Dennis Logan MD Departure Forms: Customer Survey General Discharge Information (Cooper Barry) Departure Disposition: HOME OR SELF CARE Additional Instructions: FOLLOW UP WITH IOP TOMORROW TAKE LIBRIUM PRESCRIBED DO NOT DRINK WHILE OIN THE LIBRIUM RETURN IF SYMPTOMS WORSEN OR FOR ANY CONCERNS Prescriptions: Current Visit Scripts Chlordiazepoxide HCl 1 CAP PO TID PRN ALCOHOL WITHDRAWAL #12 CAP TAKE 1 PILL 3 TIMES A DAY FOR 2 DAYS THEN TWICE A DAY FOR 2 DAYS THEN 1 DAY FOR 2 DAYS PA/FARE REGISTER REPAIRER Co-Sign Statement Statement: ED Attending supervision documentation- [X] I saw and evaluated the patient. I have also reviewed all the pertinent lab results and diagnostic results. I agree with the findings and the plan of care as documented in the PA's/FARE REGISTER REPAIRER's documentation. [X] I have reviewed the ED Record and agree with the PA's/FARE REGISTER REPAIRER's documentation. [] Additions or exceptions (if any) to the PAs/FARE REGISTER REPAIRER's note and plan are summarized below: [] (Genaro Goyal MD) ED Attending Observation Initial Observation Note: I have seen and personally examined NIKI LUGO on 04/15/17 at 1539. I agree with the current emergency department documentation. The disposition (admission or discharge) is uncertain at this time, he needs a period of observation for the following reason(s): [Patient presents with alcohol dependency and acute withdrawal as well as suicidal ideations. Patient does have a history of withdrawal seizures. Patient will need close observation and follow-up of his CIWA score. Once he is sober he will also reviewed to be seen by psychiatry. Patient is currently at high risk and only close observation.] The ED Nurse caring for this patient has been personally informed as to what the patient is being observed for. Observation Re-Evaluation: I have reevaluated NIKI LUGO on 04/15/17 at 1741. The physical findings that support the continued need to observe this patient include [CIWA SCORE IS ESCULATING AND HX OF SEIZURES, WILL START ATIVAN. L/S CTA B/L, ]. 04/16/17, 7:50 AM: Patient continues to require Ativan for alcohol withdrawal. Patient is currently eating breakfast. Awaiting state approval to determine if we can admit him for treatment for a medical detox given his alcohol dependency and acute withdrawal. His lungs are clear to auscultation, cardiac exam is regular rate and rhythm. Observation Discharge: I have reevaluated NIKI LUGO on 04/16/17 at 1112. The patient is: ([X]): Stable for discharge (): To be admitted to Nursing Floor (): To be placed in Observation on Nursing Floor (): For transfer to other facility The patient was being observed for [alcohol dependency in acute withdrawal.] As a result of that observation, I have determined [patient meets criteria for medical admission for detox however he is refusing to stay. Patient states he has IOP appointment tomorrow. Patient is due to start naltrexone. Patient is alert and oriented 3. Patient verbally understands the risks of leaving. Patient promises not to drink. Patient will be started on Librium.]. (Jay Jay DORSEY,Genaro Johnson)
[2017-04-15 15:27] LABS: ABSOLUTE BASOPHIL COUNT 0 /CUMM (0.0-0.2); ABSOLUTE EOSINOPHIL COUNT 0.1 /CUMM (0.0-0.7); ABSOLUTE GRANULOCYTE CT 11.6 /CUMM (1.4-6.5); ABSOLUTE LYMPH COUNT 1.8 /CUMM (1.2-3.4); ABSOLUTE MONOCYTE COUNT 0.9 /CUMM (0.10-0.60); BASOPHIL % 0 % (0.0-2.0); EOSINOPHIL % 0.8 % (0-5); GRANULOCYTE % 80.6 % (42.2-75.2); HEMATOCRIT 46.6 % (42-52); MEAN CORPUSCULAR HGB 30.5 PG (27.0-31.0); MEAN CORPUSCULAR HGB CONC 34.4 G/DL (33.0-37.0); MEAN CORPUSCULAR VOLUME 88.5 FL (80.0-94.0); MEAN PLATELET VOLUME 7.2 FL (7.4-10.4); PLATELET COUNT 330 /CUMM (130-400); RBC DISTRIBUTION WIDTH 13.3 % (11.5-14.5); RED BLOOD CELL CT 5.26 /CUMM (4.70-6.10); WHITE BLOOD CELL COUNT 14.4 /CUMM (4.8-10.8)
[2017-04-15] MEDS ORDERED: AMOXICILLIN500 M2 PO (16:32)
[2017-04-15] MEDS ORDERED: IBUPROFEN800 M1 PO (16:32)
[2017-04-15 20:12] VITALS: BP 128/84
[2017-04-16 00:12] VITALS: BP 140/92
[2017-04-16 03:29] VITALS: BP 117/73
[2017-04-16 06:19] VITALS: BP 128/74
[2017-04-16 08:35] VITALS: BP 137/92
[2017-04-16] MEDS ORDERED: CHLORDIAZEPOXID25 M3 PO (11:16)
[2017-04-16 11:27] VITALS: BP 132/85
--- NOTE | 2017-04-16 12:24 | ED PSYCH CRISIS CONSULTATION ---
Crisis Consult Basic Assessment Date of Consult: 04/16/17 Responsible Person/Accompanied By: self Insurance Authorization: Insurance #1: Insurance name: ROYER MORIN Phone number: Policy number: [id number] Group number: Authorization number: ED Provider: Patient's ED Provider: Cooper Barry Primary Care Physician: Patient's PCP: Unknown PCP's Phone Number: Current Psychiatrist: [facility] Chief Complaint: ETOH/Drug Related Complaint Patient's Quote: "I didn't mean what I said, I was just drunk." Present Illness: The pt is a 46yo single male who took an Uber to the ED for alcohol detox and SI. Pts BAL was 262 and his toxicology screen is negative. The ED record documents the pt stating upon arrival that he was suicidal. Before being seen by Crisis the pt was requesting to be discharged. During this assessment the presented alert, oriented and pleasant with goal directed speech. The pt reports severe dental pain as a stressor prior to drinking Vodka. The pt denies SI, HI, AH and VH. Regarding SI statements upon arrival, the pt stated I was just drunk, I didnt mean it. The pt denies having a plan when making the statement yesterday about SI. The pt is requesting discharge home and to continue in [facility] on 04/18/17. The pt reports a long hx of alcohol use and stated he went to detox/rehab in [place] from 02/06/17 through 03/28/17. The pt reports he completed his IOP intake at [place] on 04/03/17 and feels well connected to the [facility] staff. The pt denies problems with sleep, appetite and concentration. The pt presents future oriented. The pt denies he is on any medication and reports he is interested in Zwamyitrol. The pt stated he lives by himself in an apartment and has support through a friend. The pt denies experiencing withdrawal despite CIWA scores of 8 and 10. The pt denies any current mood related complaints. The pt reports his last psychiatric hospitalization was at [place] April 2014. Records indicate that admission was for depression, SI and alcohol. The pt last presented to the [place] ED 12/2016 for SI and alcohol detox. The pt was discharged with a referral to [facility]. The pt reports his sole suicide attempt was 2010 while intoxicated in the [place] ED. The pt reports wrapping a strip of his blanket around his neck in a nonlethal way. The pt reports [place] staff discovered this and pt was still discharged. Previous records document the pt was in alf for 3 years for assaulting his partner and released in 2013. The pts presentation and hx was discussed with Dr. Reardon, the pt is psychiatrically cleared. Notified this to Dr. Goyal who reports the pt was encouraged by ED staff to accept a medical admission managing alcohol withdrawal. The pt is refusing admission for detox, his request for discharge will be managed by the medical ED staff. The pt stated he plans on continuing in [facility] with the next date of service on 04/18/17. Patient's Address: [address] [place] [address] Other Phone Number: Who Do You Live With? Patient/Self Family/Informants Interviewed: Pt refused to identify anyone for collateral. Allergies - Coded Allergies: No Known Allergies (01/09/17) Current Medications - Scheduled Medications Amoxicillin 500 MG CAPSULE 2 CAP PO Q6H ABX #28 (Reported) Entered as Reported by Helen Timmons on 04/15/17 1632 Scheduled PRN Medications Chlordiazepoxide HCl 25 MG CAPSULE 1 CAP PO TID PRN ALCOHOL WITHDRAWAL #12 CAP Prescribed by Genaro Goyal MD on 04/16/17 Ibuprofen 800 MG TABLET 1 TAB PO TID PRN PAIN/INFLAMMATION #25 (Reported) Entered as Reported by Helen Timmons on 04/15/17 1632 Laboratory Results: Laboratory Tests 04/15/17 1524: Urine Opiates Screen < 100.00, Methadone Screen < 40, Barbiturate Screen < 60, Ur Phencyclidine Scrn < 6.00, Amphetamines Screen < 100, U Benzodiazepines Scrn < 85, Urine Cocaine Screen < 50, Urine Cannabis Screen < 5.00 04/15/17 1520: Anion Gap 18 H, Estimated GFR > 60, BUN/Creatinine Ratio 22.5, Glucose 98, Calcium 8.9, Total Bilirubin 0.4, AST 28, ALT 31, Alkaline Phosphatase 68, Troponin I < 0.01, Total Protein 7.3, Albumin 4.7, Globulin 2.6, Albumin/ Globulin Ratio 1.8, Amylase 53, Lipase 120, CBC w Diff NO MAN DIFF REQ, RBC 5.26 , MCV 88.5, MCH 30.5, MCHC 34.4, RDW 13.3, MPV 7.2 L, Gran % 80.6 H, Lymphocytes % 12.5 L, Monocytes % 6.1, Eosinophils % 0.8, Basophils % 0, Absolute Granulocytes 11.6 H, Absolute Lymphocytes 1.8, Absolute Monocytes 0.9 H, Absolute Eosinophils 0.1, Absolute Basophils 0, Serum Alcohol 262.0 Past History Past Medical History Neurological: seizure EENT: NONE Cardiovascular: NONE Respiratory: NONE Gastrointestinal: umbilical hernia Hepatic: NONE Renal: NONE Musculoskeletal: NONE Psychiatric: alcohol dependence, depression Endocrine: NONE Blood Disorders: NONE Cancer(s): NONE EMERGENCY NURSE/Reproductive: NONE Past Surgical History Surgical History: hernia repair-umbilical Psychosocial History Strengths/Capabilities: Desire for recovery, came to ED voluntarily, knows how to access treatment, connected to IOP. Physical Limitations (Interventions): None Psychiatric Treatment History Psych Treatment Psychiatric Treatment Yes Inpatient Treatment Yes Outpatient Treatment Yes Location of Treatment [facility] Reason for Treatment depression, SI Dates of Treatment 2014, 2017 Response to Treatment poor Diagnosis by History: MDD PTSD Alcohol use d/o Substance Use/Abuse History Drug Use/Abuse Substances Used/Abused Yes Substance Used/Abused Alcohol First Use pt unsure Last Used 04/15/17 How much used/taken pt reports 1 pint vodka How often pt reports when not sober he drinks daily For how long long hx Substance Abuse Treatment Substance Abuse Treatment Past Substance Abuse TX Yes Inpatient Treatment Yes Outpatient Treatment Yes Location of Treatment [facility], [facility] in [place], Rehab in [place] Reason for Treatment alcohol dependence Dates of Treatment long hx Response to Treatment inconsistent Current Mental Status Mental Status Orientation: Person, Place, Situation Affect: WNL Speech: WNL Neuro-vegetative: WNL Appearance Appearance- Dress/Hygiene: appropriate Behaviors Thought Process: WNL Thought Content: WNL Memory: WNL Insight: Fair SI/HI Risk Assessment Past Suicidal Ideation/Attempts Yes Current Suicidal Ideation/Att No Past Homicidal Ideation/Att: No Current Homicidal Ideation/Attempts No Degree of Intent: None Risk Factors: chronic/serious med cond., history of suicide atmpts, SA/MH hospitalized, substance abuse, male Lethality Ratin (mild) PTSD Checklist PTSD Done? patient declined ED Management Sitter: Yes Restraints: No DSM5/PS Stressors/Medical Prob Diagnosis' (DSM 5, Stressors, Medical): F10.20 Alcohol Use Dis, Severe Current GAF: 44 Departure Disposition Psych Medical Clearance Date: 04/16/17 Medically Cleared at: 1030 Time Started: 1040 Time Ended: 1110 Psychiatrist Consulted: Dr. Reardon Date Disposition Established: 04/16/17 Time Disposition Established: 112 Plan for Disposition - Modality: IOP Facility: [facility] Follow-up Appt Date: 04/18/17 Rationale for Disposition: Pt is not in need of psychiatric hospitalization. Referrals Unknown (PCP/Family)
== END 2017-04-16 15:00 ==
LOC: ERH 14:57 → ERHI 15:39
PROVIDERS: Physician Assistant Medical
DX: F10.239 Alcohol dependence with withdrawal, unspecified (principal); R45.851 Suicidal ideations; R56.9 Unspecified convulsions; F32.9 Major depressive disorder, single episode, unspecified; F17.200 Nicotine dependence, unspecified, uncomplicated
CPT/HCPCS: 6090; 80307; 93005; 93010; 96374; 96375; 96376; G0378; G0463; G0480; J0131; J2405

== ENCOUNTER 2017-04-23 14:36 | Emergency (ER) | payer OTHER ==
[~2017-04-23] VITALS: Ht 172.7 cm; Wt 85.3 kg
[~2017-04-23 14:36] MED LIST changes: +AMOXICILLIN500 M2 PO; +IBUPROFEN800 M1 PO
--- NOTE | 2017-04-23 15:13 | ED GENERAL ADULT ---
History of Present Illness General Chief Complaint: ETOH/Drug Related Complaint Stated Complaint: ALCOHOL DETOX Source: patient Exam Limitations: intoxication Vital Signs & Intake/Output Vital Signs & Intake/Output Vital Signs Date Time Temp Pulse Resp B/P B/P Pulse O2 O2 Flow FiO2 Mean Ox Delivery Rate 04/24 0014 98.3 68 18 113/71 97 Room Air 04/23 2210 98.9 82 18 129/80 04/23 2210 98.9 82 18 129/80 95 Room Air 04/23 2000 98.0 93 18 157/79 04/23 2000 98.0 93 18 157/79 95 Room Air 04/23 1806 97.6 94 18 144/89 93 Room Air 04/23 1609 97.7 81 18 134/78 98 Room Air 04/23 1557 Room Air 04/23 1443 96.5 115 18 132/86 96 Room Air ED Intake and Output 04/24 0000 04/23 1200 Intake Total 120 Output Total Balance 120 Intake, Oral 120 Patient 188 lb Weight Weight Reported by Patient Measurement Method Allergies Coded Allergies: No Known Allergies (01/09/17) Reconcile Medications Amoxicillin 500 MG CAPSULE 2 CAP PO Q6H ABX (Reported) Chlordiazepoxide HCl 25 MG CAPSULE 1 CAP PO TID PRN ALCOHOL WITHDRAWAL TAKE 1 PILL 3 TIMES A DAY FOR 2 DAYS THEN TWICE A DAY FOR 2 DAYS THEN 1 DAY FOR 2 DAYS Ibuprofen 800 MG TABLET 1 TAB PO TID PRN PAIN/INFLAMMATION (Reported) Triage Note: PT TO ED FOR ETOH DETOX, SEEN AND DETOX'D HERE ABOUT TWO WEEKS AGO, WENT TO REHAB IN [place] "BUT MY INSURANCE RAN OUT SO THEY KICKED ME OUT" PT ARRIVED HOME ON MONDAY EVENING AND HAS BEEN DRINKING HEAVILY FOR THE PAST TWO DAYS - 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 Triage Nurses Notes Reviewed? yes Onset: Abrupt Duration: day(s): Timing: recent history HPI: 04/23/17 3:30 PM 46-year-old man presents to the emergency department for alcohol intoxication and requesting alcohol detox. The patient states that he has history of alcohol dependency. He says he last used alcohol just prior to admission. He says he just came back from [place] and his insurance was canceled. He was unable to complete his rehabilitation. He is going to [facility]. He says that he has had an alcohol withdrawal seizure within the last year. He denies depression or suicidal ideation at this time. He is requesting help with detox. (Ez Alonzo DO) Past History Travel History Traveled to [place] past 21 day No Medical History Any Pertinent Medical History? 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 No (Ez Alonzo DO) Review of Systems Review of Systems Constitutional: Reports: no symptoms. EENTM: Reports: no symptoms. Respiratory: Reports: no symptoms. Cardiovascular: Reports: no symptoms. GI: Reports: no symptoms. Genitourinary: Reports: no symptoms. Musculoskeletal: Reports: no symptoms. Skin: Reports: no symptoms. Neurological/Psychological: Denies: depressed. Hematologic/Endocrine: Reports: no symptoms. Immunologic/Allergic: Reports: no symptoms. (Ez Alonzo DO) Physical Exam Physical Exam General Appearance: alert, awake, anxious, mild distress Head: atraumatic, normal appearance Eyes: Bilateral: normal appearance, PERRL, EOMI. Ears, Nose, Throat: normal pharynx, normal ENT inspection Neck: normal inspection, supple Respiratory: normal breath sounds, chest non-tender Cardiovascular: regular rate/rhythm Peripheral Pulses: 4+ radial (R), 4+ radial (L) Gastrointestinal: soft, non-tender Back: normal range of motion Extremities: normal inspection, normal range of motion Neurologic/Psych: no motor/sensory deficits, awake, alert, oriented x 3 Skin: intact, normal color, warm/dry Core Measures ACS in differential dx? Yes CVA/TIA Diagnosis: No Sepsis Present: No Sepsis Focused Exam Completed? No (Ez Alonzo DO) Progress Differential Diagnoses I considered the following diagnoses in my evaluation of the patient: [Alcohol intoxication, alcohol withdrawal, delirium tremens] Plan of Care: Orders Procedure Date/time Status Continuous Observation Monitor 04/23 1518 Complete CIWA 04/23 151 Active URINE DRUG SCREEN FOR ER ONLY 04/23 151 Complete ETHANOL 04/23 151 Complete COMPREHENSIVE METABOLIC PANEL 04/23 151 Complete CBC WITHOUT DIFFERENTIAL 04/23 151 Complete Laboratory Tests 04/23/17 1535: Urine Opiates Screen < 100.00, Methadone Screen < 40, Barbiturate Screen < 60, Ur Phencyclidine Scrn < 6.00, Amphetamines Screen 147, U Benzodiazepines Scrn > 800 H, Urine Cocaine Screen < 50, Urine Cannabis Screen < 5.00 04/23/17 1532: Anion Gap 15, Estimated GFR > 60, BUN/Creatinine Ratio 20.0, Glucose 91, Calcium 9.6, Total Bilirubin 0.3, AST 25, ALT 35, Alkaline Phosphatase 68, Total Protein 6.9, Albumin 4.3, Globulin 2.6, Albumin/Globulin Ratio 1.7, CBC w Diff NO MAN DIFF REQ, RBC 4.93, MCV 90.1, MCH 30.6, MCHC 34.0, RDW 13.7, MPV 7.6, Gran % 75.4 H, Lymphocytes % 14.6 L, Monocytes % 5.8, Eosinophils % 3.5, Basophils % 0.7, Absolute Granulocytes 8.8 H, Absolute Lymphocytes 1.7, Absolute Monocytes 0.7 H, Absolute Eosinophils 0.4, Absolute Basophils 0.1, Serum Alcohol 210.0 Initial ED EKG: none (Ez Alonzo DO) Departure Departure Condition: Stable Referrals: Patient Has No Primary Care Dr (PCP/Family) Departure Forms: Customer Survey General Discharge Information Comments 04/23/17 3:30 PM Patient will be signed out to Dr. Goyal at 7 PM. He is pending case management evaluation and approval for inpatient alcohol detox, CIWA evaluations. (Ez Alonzo DO) Departure Disposition: HOME OR SELF CARE Clinical Impression Primary Impression: Alcohol intoxication Secondary Impressions: Alcohol withdrawal, Toothache Additional Instructions: FOLLOW UP WITH A DETOX FACILITY RETUNR FOR ANY CONCERNS FOLLOW UP WITH A DENTIST ABOUT YOUR TOOTH (Jay Jay DORSEY,Genaro Johnson) Critical Care Note Critical Care Note Critical Care Time: 30-74 min (Ez Alonzo DO)
[2017-04-23 15:42] LABS: ABSOLUTE BASOPHIL COUNT 0.1 /CUMM (0.0-0.2); ABSOLUTE EOSINOPHIL COUNT 0.4 /CUMM (0.0-0.7); ABSOLUTE GRANULOCYTE CT 8.8 /CUMM (1.4-6.5); ABSOLUTE LYMPH COUNT 1.7 /CUMM (1.2-3.4); ABSOLUTE MONOCYTE COUNT 0.7 /CUMM (0.10-0.60); BASOPHIL % 0.7 % (0.0-2.0); EOSINOPHIL % 3.5 % (0-5); GRANULOCYTE % 75.4 % (42.2-75.2); HEMATOCRIT 44.4 % (42-52); MEAN CORPUSCULAR HGB 30.6 PG (27.0-31.0); MEAN CORPUSCULAR VOLUME 90.1 FL (80.0-94.0); MEAN PLATELET VOLUME 7.6 FL (7.4-10.4); PLATELET COUNT 285 /CUMM (130-400); RBC DISTRIBUTION WIDTH 13.7 % (11.5-14.5); RED BLOOD CELL CT 4.93 /CUMM (4.70-6.10); WHITE BLOOD CELL COUNT 11.7 /CUMM (4.8-10.8)
[2017-04-24 05:53] VITALS: BP 142/84
== END 2017-04-24 05:32 ==
LOC: ERH 14:36
PROVIDERS: Emergency Medicine
DX: F10.239 Alcohol dependence with withdrawal, unspecified (principal); K08.89 Other specified disorders of teeth and supporting structures
CPT/HCPCS: 80307; G0480